=== PATIENT | female | born 1960 | race Caucasian/White ===

== ENCOUNTER 2019-01-04 13:10 | Emergency (ER) | payer BC, MEDICARE ==
--- NOTE | 2019-01-04 14:08 | CT ---
EXAMINATION TYPE: CT brain jake gallegos DATE OF EXAM: 01/04/2019 COMPARISON: None HISTORY: 58-year-old female Ran into screen door, OSCAR and neck pain CT DLP: 1353 mGycm Automated exposure control for dose reduction was used. Technique: Examination of the head was done in axial plane without intravenous contrast. Coronal and sagittal reconstructions performed. CT of the cervical spine was obtained in axial plane without intravenous injection of contrast mater ial. Coronal and sagittal reformatted images were obtained from the axial views for evaluation of f ractures, spinal alignment and canal. FINDINGS: Head: There is no evidence of acute intracranial hemorrhage, acute ischemic changes, mass, mass-effect, or extra-axial fluid collection. There is no effacement of cerebral sulci or basal subarachnoid cister ns. There is no hydrocephalus. There is no midline shift. Parra-white matter distinction is preserv ed. Trace mucosal thickening within the right-sided ethmoid air cells. Visualized orbits and globes are i ntact. Mastoid air cells are pneumatized. Cervical spine: No craniocervical junction abnormality, predental space widening, or prevertebral soft tissue swellin g. Reversal of the normal cervical lordosis with prior ACDF from C5 through C7 levels. Trace grade 1 anterolisthesis at T2-T3. No acute fracture of the cervical spine. Scattered mild uncovertebral joint arthropathy. There is some residual posterior osteophytic ridging at the fused C5-C6 level possibly contributing t o moderate underlying spinal canal stenosis. Disc osteophyte complex along the fusion isn't the C4-C5 causes mild spinal canal stenosis. Variable mild neuroforaminal narrowing throughout. Possible underlying 1.6 cm nodule within the left lobe of the thyroid gland. 5 mm subpleural pulmonary nodule posterior right upper lobe. Six-month follow-up recommended to reass ess in survey of the remainder of the lungs. Sagittal and coronal reformatted images confirm above findings. COMBINED IMPRESSION: 1. No acute intracranial abnormality seen. 2. No acute fracture of the cervical spine. 3. Prior C5-C7 ACDF. Degenerative grade 1 anterolisthesis at T2-T3. Residual posterior osteophytic ri dging at the fused C5-C6 level may contribute to moderate narrowing of the spinal canal. Degenerative disc disease causing mild spinal canal narrowing above the fusion at C4-C5. 4. There may be a 1.6 cm nodule within the left lobe of the thyroid gland. Nonemergent follow-up thyr oid ultrasound to further evaluate.
[2019-01-04] MEDS ORDERED: KETOROLAC 30 MG/ML 1 ML VIAL IVP STA (14:26)
[2019-01-04] MEDS ORDERED: METOCLOPRAMIDE 5 MG/ML 2 ML VIAL IVP STA (14:26)
[2019-01-04] MEDS ORDERED: diphenhydrAMINE 50 MG/ML 1 ML VIAL IVP STA ×2 (14:26→15:10)
[2019-01-04] MEDS ORDERED: SODIUM CHLORIDE 0.9% 500 ML 500 ML IV ONE (14:27)
[2019-01-04 15:47] LABS: Glucose,Whole Blood 124 mg/dL (75-99)
--- NOTE | 2019-01-04 15:50 | ED ---
Head Injury HPI - General Chief complaint: Head Injury Stated complaint: Head Injury Time Seen by Provider: 01/04/19 13:38 Source: patient Mode of arrival: ambulatory Limitations: no limitations - History of Present Illness Initial comments: 58yo female presenting to the emergency department for evaluation of headache after head injury. Patient states she was running around 7:30 PM last night when she went face first into a glass storm door. She states she has not used a these as they do not have been in [place]. Patient states she was disorien rasta after she initially struck the door she denies falling or injury to the back. Patient states that she had some neck pain about hour after the injury as well as facial pain. She states she has broken her nose 2 times. She denies epistaxis. Patient denies loss of conscious. Patient denies any nausea or vomiting. Patient denies any dizziness speech changes weakness of the upper or lower extremities or sensation deficits. Patient states she has failed to walk without difficulty however her facial pain soon developed into a headache this morning she was concerned she had a concussion with headache persisted into this afternoon she presents emergency department for further evaluation upon arrival patient appears well signs of acute distress. No obvious focal deficits. She is very pleasant - Related Data Home Medications Medication Instructions Recorded Confirmed Acetaminophen Tab [Tylenol Tab] 1,000 mg PO Q6HR 01/04/19 01/04/19 Cholecalciferol (Vitamin D3) 2,000 unit PO DAILY 01/04/19 01/04/19 [Vitamin D3] INSULIN LISPRO (humaLOG) [humaLOG] See Protocol SQ AC-TID 01/04/19 01/04/19 Insulin Glargine [Lantus] 20 unit SQ HS 01/04/19 01/04/19 Multivitamins, Thera [Multivitamin 1 tab PO DAILY 01/04/19 01/04/19 (formulary)] metFORMIN HCL [Glucophage Xr] 500 mg PO DAILY 01/04/19 01/04/19 Allergies/Adverse reactions: Allergies Allergy/AdvReac Type Severity Reaction Status Date / Time shellfish derived [Shrimp] Allergy Rash/Hives Verified 01/04/19 14:16 Review of Systems ROS Statement: Those systems with pertinent positive or pertinent negative responses have been documented in the HPI. ROS Other: All systems not noted in ROS Statement are negative. Past Medical History Past Medical History: Asthma, Fibromyalgia, Osteoarthritis (OA) Additional Past Medical History / Comment(s): DM type I, lupus, ankylosing spondylitis, RA, interstitial cystitis History of Any Multi-Drug Resistant Organisms: MRSA Date of last positivie culture/infection: RT breast 2016 Past Surgical History: Back Surgery, Section Additional Past Surgical History / Comment(s): hip decompression, bilateral shoulder sx, partial hysterectomy, D&C, carpal tunnel, gastric sleeve, breast augmentation Past Psychological History: No Psychological Hx Reported Smoking Status: Never smoker Past Alcohol Use History: None Reported Past Drug Use History: None Reported General Exam - General Exam Comments Initial Comments: General: The patient is awake and alert, in no distress Eye: Pupils are equal, round and reactive to light, extra-ocular movements are intact. No nystagmus. There is normal conjunctiva bilaterally. No signs of icterus. Ears, nose, mouth and throat: There are moist mucous membranes and no oral lesions. No raccoon or Wheat sign no deviation of the nasal septum. Neck: The neck is supple, there is no tenderness or JVD. Cardiovascular: There is a regular rate and rhythm. No murmur, rub or gallop is appreciated. Respiratory: Lungs are clear to auscultation, respirations are non-labored, breath sounds are equal. No wheezes, stridor, rales, or rhonchi. Musculoskeletal: Normal ROM, no tenderness. Strength 5/5 of the UE and LE b/l. Sensation intact of the UE and LE b/l. Pulses equal bilaterally 2+. Neurological: A&O x 3. CN II-XII intact, There are no obvious motor or sensory deficits. Gait, heel to perry finger nose within cor name.. Speech is normal. Skin: Skin is warm and dry and no rashes or lesions are noted. Psychiatric: Cooperative, appropriate mood & affect, normal judgment. Limitations: no limitations Course Vital Signs 01/04/19 01/04/19 13:22 16:04 Temperature 97.5 F L 97.8 F Pulse Rate 70 73 Respiratory 18 16 Rate Blood Pressure 100/53 112/67 O2 Sat by Pulse 98 99 Oximetry Medical Decision Making - Medical Decision Making 58yo female presenting to emergency department for evaluation of facial/head injury with headache. CT of the brain and C-spine negative for acute process. He is able to fully range the cervical spine without difficulty. There is some noticed stenosis of the cervical spine. Patient has no radicular symptoms. Strength the upper extremities with sensation intact. Patient has no acute intracranial process however clinically possible concussion. Concussion protocol as discussed. No focal neurological deficits on physical examination. Patient was given Toradol Reglan and Benadryl. Patient glucose checked which was within normal limits. Incidental finding of thyroid nodule patient states she is aware. Patient was discharged appearing well agreeable with concussion protocols and PCP follow-up within 1-2 days. - Lab Data Lab Results 01/04/19 Range/Units 15:45 POC Glucose (mg/dL) 124 H (75-99) mg/dL POC Glu Patient Account Liaison ID Mookie Marie Disposition Clinical Impression: Head ache, Head injury, Concussion, Thyroid nodule Disposition: HOME SELF-CARE Condition: Good Instructions (If sedation given, give patient instructions): Concussion (ED) Additional Instructions: Please use medication as discussed. Please follow-up with family doctor in the next 2 days, for concussion as well as thyroid nodule. Please return to emergency room if the symptoms increase or worsen or for any other concerns. Is patient prescribed a controlled substance at d/c from ED?: No Referrals: Dick Mariano DO [Primary Care Provider] - 1-2 days Time of Disposition: 15:50
[2019-01-04 16:05] VITALS: BP 112/67; PULSE 73; RESP 16; TEMP 97.8
== END 2019-01-04 16:04 | disposition home or self-care (01) ==
LOC: EC 13:10
DX: S06.0X0A Concussion without loss of consciousness, initial encounter (principal); E04.1 Nontoxic single thyroid nodule; E10.9 Type 1 diabetes mellitus without complications; Z79.4 Long term (current) use of insulin; Z91.018 Allergy to other foods
CPT/HCPCS: 36415; 72125; 70450; 99284; 96374; 96375 ×2; 96361; J1200; J2765; J1885

== ENCOUNTER → 2019-03-10 | Outpatient (CLI) | payer BC, MEDICARE ==
--- NOTE | 2019-03-10 14:02 | US ---
EXAMINATION TYPE: US thyroid st tissue head/neck DATE OF EXAM: 03/10/2019 COMPARISON: NONE CLINICAL HISTORY: E04.1 Nontoxic single thyroid nodule. Priors [place]. GLAND SIZE: Right Lobe: 5.3 x 1.6 x 1.5 cm Overall Parenchyma: homogenous Left Lobe: 6.2 x 1.8 x 2.6 cm Overall Parenchyma: heterogeneous Isthmus Thickness: 0.5 cm NODULES RIGHT: # of nodules measured on right: 1 1. 1.6 X 0.8 x 1.1 cm hypoechoic mixed nodule at the upper pole with well-defined margins; . This nodule is wider than tall and shows no intranodular vascularity. Prior size: no prior here LEFT: # of nodules measured on left: 3 1. 2.4 X 1.1 x 1.6 cm isoechoic mixed nodule at the mid pole with well-defined margins; . This nod ule is wider than tall and shows peripheral vascularity. Prior size: no prior here 2. 1.2 X 0.8 x 1.2 cm isoechoic mixed nodule at the lower pole with well-defined margins; . This no dule is wider than tall and shows intranodular vascularity. Prior size: no prior here 3. 0.9 X 0.7 x 0.9 cm isoechoic mixed nodule at the upper pole with well-defined margins; . This no dule is wider than tall and shows no intranodular vascularity. Prior size: no prior here ISTHMUS: # of nodules measured in the isthmus: 0 Bilateral neck scanned, no evidence of lymphadenopathy. Conglomeration of nodules that all run together within the left, difficult to distinguish individual versus consolidated nodules. IMPRESSION: Bilateral thyroid nodules are seen. The largest appears as a conglomeration of multiple nodules on th e left measuring 2.4 cm. Comparison with the outside images would be recommended to ensure stability. Otherwise fine-needle aspiration could be considered for the left conglomeration of nodules given th e overall size versus short-term follow-up in 6-12 months.
== END | disposition home or self-care (01) ==
LOC: RADUSWWP 13:21
PROVIDERS: ATTEND Family Medicine
DX: E04.2 Nontoxic multinodular goiter (principal)
CPT/HCPCS: 76536

== ENCOUNTER 2019-04-08 09:12 | Day surgery (SDC) | payer BC, MEDICARE ==
[2019-04-08 09:44] VITALS: PULSE 87; RESP 16; TEMP 98.1
[2019-04-08 10:48] LABS: Glucose,Whole Blood 45 mg/dL (75-99)
[2019-04-08 11:04] LABS: Glucose,Whole Blood 101 mg/dL (75-99)
[2019-04-08 11:47] LABS: Glucose,Whole Blood 148 mg/dL (75-99)
--- NOTE | 2019-04-08 12:01 | US ---
EXAMINATION TYPE: US FNA thyroid each add lesion, US FNA thyroid first lesion DATE OF EXAM: 04/08/2019 COMPARISON: Ultrasound 03/10/2019 HISTORY: Thyroid nodule. Hand hygiene obtained with soap and water. Maximal barrier technique was utilized. After informed co nsent, skin overlying the lesion was localized with ultrasound and the overlying skin prepped and oseas ped. Ultrasound was utilized using sterile technique. Lidocaine was used for local anesthesia. 3 pas ses with a 25-gauge needle were made into the right-sided thyroid nodule and aspirated specimen was s ubmitted to cytology. 5 passes made into the left lobe thyroid nodule using similar technique and asp irated specimen submitted to cytology. Following the procedure hemostasis achieved. No immediate com plication. The patient discharged in stable condition. IMPRESSION: STATUS POST ULTRASOUND GUIDED FINE NEEDLE ASPIRATION OF BILATERAL THYROID NODULES, PATHOL OGY IS PENDING. THIS PROCEDURE WAS PERFORMED BY THE UNDERSIGNED.
[2019-04-08 12:11] VITALS: BP 111/76
== END 2019-04-08 12:05 | disposition home or self-care (01) ==
LOC: RADPROMAIN 09:12
PROVIDERS: ATTEND Internal Medicine Endocrinology, Diabetes & Metabolism
DX: E04.2 Nontoxic multinodular goiter (principal)
CPT/HCPCS: 10005; 10006; 88173; 88305

== ENCOUNTER → 2019-10-13 | Outpatient (CLI) | payer BC, MEDICARE ==
--- NOTE | 2019-10-25 14:00 | MM ---
Reason for exam: screening (asymptomatic). Last mammogram was performed 11 months ago. History: Patient is postmenopausal. Family history of breast cancer in mother at age 66 and breast cancer in maternal aunt at age 64. Retro-pectoral implants in both breasts, 2002. Physical Findings: A clinical breast exam by your physician is recommended on an annual basis and results should be correlated with mammographic findings. MG 3D Screen Mammo Imp/Cad Bilateral CC and MLO view(s) were taken. Prior study comparison: November 24, 2018, mammogram, performed at [place]. November 26, 2016, mammogram, performed at [place]. The breast tissue is heterogeneously dense. This may lower the sensitivity of mammography. Finding: There are typically benign vascular, dystrophic, round, linear calcifications in both breasts. There is no discrete abnormality. Bilateral subpectoral implants demonstrated. ASSESSMENT: Benign, BI-RAD 2 RECOMMENDATION: Routine screening mammogram of both breasts in 1 year.
== END | disposition home or self-care (01) ==
LOC: RADMAMWWP 14:39
PROVIDERS: ATTEND Family Medicine
DX: Z12.39 Encounter for other screening for malignant neoplasm of breast (principal)
CPT/HCPCS: 77063; 77067

== ENCOUNTER → 2020-04-26 | Outpatient (CLI) | payer BC, MEDICARE ==
[2020-04-27 01:37] LABS: Hemoglobin A1C 8.4 % (4.0-6.0)
== END | disposition home or self-care (01) ==
LOC: LABWHC1 14:22
PROVIDERS: ATTEND Internal Medicine Endocrinology, Diabetes & Metabolism
DX: Z01.812 Encounter for preprocedural laboratory examination (principal); E10.65 Type 1 diabetes mellitus with hyperglycemia; E04.2 Nontoxic multinodular goiter
CPT/HCPCS: 84443; 83036; 36415; U0003

== ENCOUNTER → 2020-06-12 | Outpatient (CLI) | payer BC, MEDICARE ==
[2020-06-12 22:18] LABS: Hemoglobin A1C 8.3 % (4.0-6.0)
== END | disposition home or self-care (01) ==
LOC: LABWHC1 09:58
PROVIDERS: ATTEND Internal Medicine Endocrinology, Diabetes & Metabolism
DX: E10.65 Type 1 diabetes mellitus with hyperglycemia (principal); E04.2 Nontoxic multinodular goiter
CPT/HCPCS: 36415; 83036; 84439; 84443

== ENCOUNTER → 2020-07-09 | Outpatient (CLI) | payer BC, MEDICARE ==
[2020-07-09 23:56] LABS: C-Peptide <0.05 ng/mL (0.81-3.85)
[2020-07-10 00:48] LABS: Glucose 230 mg/dL (70-110)
== END | disposition home or self-care (01) ==
LOC: LABWHC1 07:57
PROVIDERS: ATTEND Internal Medicine Endocrinology, Diabetes & Metabolism
DX: E10.65 Type 1 diabetes mellitus with hyperglycemia (principal)
CPT/HCPCS: 36415; 82947; 84681

== ENCOUNTER → 2020-12-13 | Outpatient (CLI) | payer BC, MEDICARE ==
--- NOTE | 2020-12-13 15:06 | XR ---
EXAMINATION TYPE: XR lumbar spine 2 or 3V DATE OF EXAM: 12/13/2020 CLINICAL HISTORY: Low back pain. TECHNIQUE: Frontal and lateral images of the lumbar spine are obtained. COMPARISON: None FINDINGS: There are 5 lumbar type vertebral bodies identified. The lumbar spine shows satisfactory alignment without evidence of acute fracture or dislocation. Vertebral body heights are within normal limits. Mild disc space narrowing L1-L2 and L2-L3 levels. Surgical sutures and clips at epigastric r egion are partially imaged. IMPRESSION: As above.
[2020-12-13 15:48] LABS: Basophils # (A) 0.1 k/uL (0-0.2); Basophils % (A) 1 %; Eosinophils # (A) 0.1 k/uL (0-0.7); Eosinophils % (A) 2 %; HCT 39.9 % (34.0-46.0); HGB 13.4 gm/dL (11.4-16.0); Lymphocytes # (A) 2.1 k/uL (1.0-4.8); Lymphocytes % (A) 33 %; MCH 30.2 pg (25.0-35.0); MCHC 33.7 g/dL (31.0-37.0); MCV 89.7 fL (80.0-100.0); Mean Platelet Volume 7.7; Monocytes # (A) 0.3 k/uL (0-1.0); Monocytes % (A) 5 %; Neutrophils # (A) 3.7 k/uL (1.3-7.7); Neutrophils % (A) 58 %; Platelet Count 201 k/uL (150-450); RBC 4.45 m/uL (3.80-5.40); RDW 13.7 % (11.5-15.5); WBC 6.3 k/uL (3.8-10.6)
[2020-12-13 15:57] LABS: ALT 14 U/L (4-34); AST 23 U/L (14-36); African American GFR (CKD) >90 (>60 ml/min/1.73 sqM); Albumin 3.6 g/dL (3.5-5.0); Alkaline Phosphatase 82 U/L (38-126); Anion Gap 3 mmol/L; Bilirubin, Delta 0.1 mg/dL (0.0-0.2); Bilirubin,Unconjugated 0.3 mg/dL (0.0-1.1); Blood Urea Nitrogen 17 mg/dL (7-17); Calcium 8.9 mg/dL (8.4-10.2); Carbon Dioxide 28 mmol/L (22-30); Chloride 106 mmol/L (98-107); Non-African American GFR(CKD) >90 (>60 ml/min/1.73 sqM); Potassium 4.3 mmol/L (3.5-5.1); Sodium 137 mmol/L (137-145); Total Bilirubin 0.4 mg/dL (0.2-1.3); Total Protein 6.4 g/dL (6.3-8.2)
--- NOTE | 2020-12-13 16:01 | XR ---
EXAMINATION TYPE: XR Hip Bilateral and AP pelvis DATE OF EXAM: 12/13/2020 COMPARISON: NONE HISTORY: Pelvic and bilateral hip pain. TECHNIQUE: A single AP view of the pelvis is obtained. Two views of the bilateral hips are obtained. FINDINGS: There is no acute fracture/dislocation evident in the pelvis. The sacroiliac joints appea r symmetric and within normal limits. Pubic symphysis is intact. Radiodense device projecting over th e left iliac crest is presumed external to the patient but a colonic foreign body is not excluded. Co rrelate clinically. Two views of bilateral hips show no acute fracture or dislocation. Moderate axial joint space loss le ft hip. Severe axial joint space loss right hip. Some cortical irregularity and subcortical lucency s uperior femoral head on the right hip frog leg view could reflect product of avascular necrosis. The overlying soft tissue is unremarkable bilaterally. IMPRESSION: As above.
[2020-12-13 16:14] LABS: C Reactive Protein <0.5 mg/dL (<1.0)
[2020-12-13 16:32] LABS: Erythrocyte Sedimentation Rate 10 mm/hr (0-20)
[2020-12-14 10:19] LABS: Rheumatoid Factor, Qnt <10 IU/mL (0-15)
[2020-12-14 23:28] LABS: Cyclic Citrull Pep IgG Unit <0.5 U/mL; Cyclic Citrullinated Pep IgG NEGATIVE (NEGATIVE)
== END | disposition home or self-care (01) ==
LOC: RADXRMAIN 14:30
PROVIDERS: ATTEND Internal Medicine Rheumatology
DX: E10.9 Type 1 diabetes mellitus without complications (principal); M54.9 Dorsalgia, unspecified; N76.89 Other specified inflammation of vagina and vulva; Z15.89 Genetic susceptibility to other disease
CPT/HCPCS: 72100; 73521; 80051; 82040; 82248; 82306; 82310; 82565; 84075; 84155; 84450; 84460; 84520; 84550; 85025; 85652; 86038; 86140; 86200; 86431

== ENCOUNTER → 2021-01-01 | Outpatient (CLI) | payer BC, MEDICARE ==
--- NOTE | 2021-01-01 14:21 | MM ---
Reason for exam: screening (asymptomatic). Last mammogram was performed 1 year and 3 months ago. History: Patient is postmenopausal. Family history of breast cancer in mother at age 66 and breast cancer in maternal aunt at age 64. Implant Removal of both breasts, May 03, 2020. Retro-pectoral implants in both breasts, 2001. Taking estrogen for 5 years. Physical Findings: A clinical breast exam by your physician is recommended on an annual basis and results should be correlated with mammographic findings. MG 3D Screening Mammo W/Cad Bilateral CC, MLO, and XCCL view(s) were taken. Prior study comparison: October 13, 2019, bilateral MG 3d screen mammo imp/cad. November 24, 2018, mammogram, performed at [place]. The breast tissue is heterogeneously dense. This may lower the sensitivity of mammography. There are benign appearing round vascular calcifications bilaterally. There is no discrete abnormality. Interval removal of bilateral implants. ASSESSMENT: Benign, BI-RAD 2 RECOMMENDATION: Routine screening mammogram of both breasts in 1 year.
== END | disposition home or self-care (01) ==
LOC: RADMAMWWP 13:36
PROVIDERS: ATTEND Family Medicine
DX: Z12.39 Encounter for other screening for malignant neoplasm of breast (principal)
CPT/HCPCS: 77063; 77067

== ENCOUNTER → 2021-05-25 | Outpatient (CLI) | payer BC, MEDICARE ==
[2021-05-25 11:57] LABS: ALT 17 U/L (8-44); AST 18 U/L (13-35); African American GFR (CKD) 108.2 (60.0-200.0); Albumin 4.1 g/dL (3.8-4.9); Albumin/Globulin Ratio 1.73 (1.60-3.17); Alkaline Phosphatase 97 U/L (41-126); BUN/Creat Ratio 23.27 Ratio (12.00-20.00); Blood Urea Nitrogen 16.5 mg/dL (9.0-27.0); Calcium 8.8 mg/dL (8.7-10.3); Carbon Dioxide 25.8 mmol/L (20.0-27.5); Chloride 102 mmol/L (96-109); Chol/HDL Ratio 2.57 Ratio; Globulin 2.3 g/dL (1.6-3.3); Glucose 120 mg/dL (70-110); LDL Cholesterol,Calculated 106.6 mg/dL (0.0-131.0); Non-African American GFR(CKD) 93.4 (60.0-200.0); Sodium 140 mmol/L (135-145); Total Protein 6.4 g/dL (6.2-8.2); VLDL Calculation 13.74 mg/dL (5.00-40.00)
[2021-05-25 18:48] LABS: Microalbumin Creatinine Ratio <30 mg/g Creat (0-30)
== END | disposition home or self-care (01) ==
LOC: LABWHC1 08:21
PROVIDERS: ATTEND Internal Medicine Endocrinology, Diabetes & Metabolism
DX: E10.65 Type 1 diabetes mellitus with hyperglycemia (principal)
CPT/HCPCS: 36415; 80053; 80061; 82043; 82570; 83036; 84443

== ENCOUNTER → 2021-07-23 | Outpatient (CLI) | payer BC, MEDICARE ==
--- NOTE | 2021-07-23 18:16 | US ---
EXAMINATION TYPE: US thyroid st tissue head/neck DATE OF EXAM: 07/23/2021 COMPARISON: 03/10/2019 CLINICAL HISTORY: 61-year-old female E04.2 MULTINODULAR GOITER. Follow up for nodules. Not on thyroi d meds. TECHNIQUE: Multiple sonographic images of the thyroid gland are obtained. FINDINGS: GLAND SIZE: Right Lobe: 5.4 x 2.2 x 1.4 cm Overall Parenchyma: homogenous Left Lobe: 5.6 x 2.5 1.8 cm Overall Parenchyma: homogeneous Isthmus Thickness: 0.4 cm NODULES RIGHT: # of nodules measured on right: 2 1. 0.8 X 0.7 x 0.5 cm, mid lateral, mixed cystic and solid, hypoechoic nodule, which is wider than tall, with smooth margins, without echogenic foci. Prior size: 1.6 x 0.8 x 0.8 cm 2. 0.3 X 0.3 x 0.3 cm, lower mid, mixed cystic and solid, hypoechoic nodule, which is wider than ta ll, with smooth margins, without echogenic foci. Prior size: no prior LEFT: # of nodules measured on left: 3 1. 2.5 X 1.7 x 1.3 cm, mid mid, primarily solid, heterogeneous nodule, which is wider than tall, wi th smooth margins, without echogenic foci. Prior size: 2.4 x 1.1 x 1.6 cm 2. 1.0 X 0.9 x 0.8 cm, lower mid, solid or almost completely solid, isoechoic nodule, which is wid er than tall, with smooth margins, without echogenic foci. Prior size: 1.2 x 0.8 x 1.2 cm 3. 0.8 X 1.0 x 0.7 cm, upper mid, primarily solid, isoechoic nodule, which is wider than tall, with smooth margins, without echogenic foci. Prior size: 0.9 x 0.7 x 0.9 cm ISTHMUS: # of nodules measured in the isthmus: 0 Bilateral neck scanned, no evidence of lymphadenopathy. IMPRESSION: 1. A tiny 3 mm nodule on the right is new, of questionable clinical significance. The previous domina nt nodule on the right is smaller at 8 mm versus 1.6 cm, previously. 2. Dominant nodules on the left measuring up to 2.5 cm are relatively unchanged. Findings suggest mul tinodular goiter.
== END | disposition home or self-care (01) ==
LOC: RADUSWWP 09:27
PROVIDERS: ATTEND Internal Medicine Endocrinology, Diabetes & Metabolism
DX: E04.2 Nontoxic multinodular goiter (principal)
CPT/HCPCS: 76536

== ENCOUNTER → 2021-09-13 | Outpatient (CLI) | payer BC, MEDICARE ==
--- NOTE | 2021-09-13 13:58 | US ---
EXAMINATION TYPE: US liver DATE OF EXAM: 09/13/2021 COMPARISON: Outside MRI lumbar spine August 12, 2021. Outside CT July 04, 2021 CLINICAL HISTORY: R93.89. Patient states orthopedic doctor saw possible mass on the liver or the righ t kidney versus other on outside MRI. Limited history from patient. MRI scan abnormal per order. Abno rmal outside MRI. EXAM MEASUREMENTS: Liver Length: 15.8 cm Gallbladder Wall: 0.16 cm CBD: 0.43 cm Right Kidney: 10.9 x 6.1 x 4.5 cm Exam is limited due to gas. Pancreas: Limited visibility. Liver: Limited, appears slightly coarse in echotexture. Gallbladder: Appears anechoic. Evidence for sonographic Mcclain's sign: No. CBD: Portions seen appear wnl. Right Kidney: Hypoechoic area seen lower pole: 2.4 x 2.4 x 1.1 cm - ?Pyramid Visualized pancreas within normal limits. IVC is seen near the hepatic dome. Visualized liver shows n o worrisome mass or ductal dilatation. No intraluminal gallstones. No right-sided hydronephrosis. [place] ards end of study technologist jenkins oval isoechoic area lower pole right kidney favoring normal lamont ex. No suspicious lesion on recent CT or MRI at this level. IMPRESSION: As above. Area of concern gallbladder on MRI is clearly artifact as noted on MRI report a ddendum.
== END | disposition home or self-care (01) ==
LOC: RADUSWWP 08:10
PROVIDERS: ATTEND Family Medicine
DX: R93.89 Abnormal findings on diagnostic imaging of other specified body structures (principal)
CPT/HCPCS: 76705

== ENCOUNTER 2021-10-07 21:20 | Emergency (ER) | payer BC, MEDICARE ==
[2021-10-07 21:31] VITALS: RESP 20
[2021-10-07] MEDS ORDERED: HYDROmorphone 1 MG/ML 1 ML SYRINGE IVP STA (22:30)
[2021-10-07] MEDS ORDERED: CEPHALEXIN 500 MG CAP PO STA (22:30)
[2021-10-07] MEDS ORDERED: AMOXIC-POT CLAV 875-125MG 1 EACH TAB PO STA (22:35)
[2021-10-07] MEDS ORDERED: AMOXIC-POT CLAV 875MG STARTER PACK 2 TAB BTL PO STA (22:39)
[2021-10-07] MEDS ORDERED: ACET/COD 300 MG/30 MG STARTER PACK 6 TAB BTL PO STA (22:39)
--- NOTE | 2021-10-07 22:40 | ED ---
Animal Bite HPI - General Chief Complaint: Animal Bite Stated Complaint: Dog Bite Time Seen by Provider: 10/07/21 21:40 Source: patient, family Mode of arrival: EMS Limitations: no limitations - Related Data Home Medications Medication Instructions Recorded Confirmed Acetaminophen Tab [Tylenol Tab] 1,000 mg PO Q6HR 01/04/19 04/08/19 Cholecalciferol (Vitamin D3) 2,000 unit PO DAILY 01/04/19 03/29/19 [Vitamin D3] INSULIN LISPRO (humaLOG) [humaLOG] See Protocol SQ AC-TID 01/04/19 04/08/19 Insulin Glargine [Lantus] 20 unit SQ HS 01/04/19 03/29/19 Multivitamins, Thera [Multivitamin 1 tab PO DAILY 01/04/19 03/29/19 (formulary)] metFORMIN HCL [Glucophage Xr] 500 mg PO DAILY 01/04/19 04/08/19 Previous Rx's Medication Instructions Recorded Amoxic-Pot Clav 875-125Mg 1 tab PO Q12HR #14 tablet 10/07/21 [Augmentin 875-125] Allergies Allergy/AdvReac Type Severity Reaction Status Date / Time shellfish derived [Shrimp] Allergy Rash/Hives Verified 10/07/21 21:30 Review of Systems ROS Statement: Those systems with pertinent positive or pertinent negative responses have been documented in the HPI. ROS Other: All systems not noted in ROS Statement are negative. Past Medical History Past Medical History: Asthma, Fibromyalgia, Osteoarthritis (OA), Thyroid Disorder Additional Past Medical History / Comment(s): DM type I, lupus, ankylosing spondylitis, RA, interstitial cystitis History of Any Multi-Drug Resistant Organisms: MRSA Date of last positivie culture/infection: 2015 MDRO Source:: skin on breast Past Surgical History: Back Surgery, Section Additional Past Surgical History / Comment(s): hip decompression, bilateral shoulder sx, partial hysterectomy, D&C, carpal tunnel, gastric sleeve, breast augmentation Past Anesthesia/Blood Transfusion Reactions: No Reported Reaction Past Psychological History: No Psychological Hx Reported Smoking Status: Never smoker Past Alcohol Use History: None Reported Past Drug Use History: None Reported - Past Family History Mother Family Medical History: Cancer, Thyroid Disorder General Exam Limitations: no limitations Course Vital Signs 10/07/21 21:26 Temperature 98.3 F Pulse Rate 90 Respiratory 20 Rate Blood Pressure 143/66 O2 Sat by Pulse 97 Oximetry Disposition Clinical Impression: Dog bite, Laceration Disposition: HOME SELF-CARE Condition: Good Instructions (If sedation given, give patient instructions): Animal Bite (ED), Care For Your Stitches (ED) Prescriptions: Amoxic-Pot Clav 875-125Mg [Augmentin 875-125] 1 tab PO Q12HR #14 tablet Is patient prescribed a controlled substance at d/c from ED?: No Referrals: Dick Mariano DO [Primary Care Provider] - 1-2 days
--- NOTE | 2021-10-07 23:00 | XR ---
EXAMINATION TYPE: XR hand limited RT DATE OF EXAM: 10/07/2021 COMPARISON: NONE HISTORY: Dog bite. Pain TECHNIQUE: 2 views FINDINGS: I see no fracture nor dislocation. There is some narrowing and spurring at the IP joints. T here are no erosions. No subluxation. IMPRESSION: osteoarthritis. No fracture. There is question of minimal soft tissue air around the thir d and fourth metacarpals.
[2021-10-07 23:48] VITALS: BP 144/84; PULSE 80; TEMP 97.9
== END 2021-10-07 23:47 | disposition home or self-care (01) ==
LOC: EC 21:20
DX: S61.411A Laceration without foreign body of right hand, initial encounter (principal); J45.909 Unspecified asthma, uncomplicated; M19.90 Unspecified osteoarthritis, unspecified site; E10.9 Type 1 diabetes mellitus without complications; Z79.84 Long term (current) use of oral hypoglycemic drugs; Z79.4 Long term (current) use of insulin; W54.0XXA Bitten by dog, initial encounter; Z91.013 Allergy to seafood
CPT/HCPCS: 73120; 99283; 96374; J1170

== ENCOUNTER → 2022-02-18 | Outpatient (CLI) | payer BC, MEDICARE ==
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
--- NOTE | 2022-02-19 11:48 | MM ---
Reason for Exam: Screening (asymptomatic). Last mammogram was performed 1 year(s) and 2 month(s) ago. Patient History: Menarche at age 14. First Full-Term at age 22. Hysterectomy at age 40. Postmenopausal. Currently using Estrogen, for 5 years. 05/03/2020, Bilateral Implant Removal. 2001, Bilateral Implants. Maternal aunt had breast cancer, age 64. Mother had breast cancer, age 66. Risk Values: Berna 5 year model risk: 2.7%. NCI Lifetime model risk: 13.9%. Prior Study Comparison: 11/24/2018 Screening Mammogram, [place]. 10/13/2019 Bilateral Screening Mammogram, [facility]. 01/01/2021 Bilateral Screening Mammogram, [facility]. Tissue Density: The breast tissue is heterogeneously dense. This may lower the sensitivity of mammography. Findings: Analyzed By CAD. There are benign-appearing round and vascular calcifications bilaterally redemonstrated. There are stable small well-circumscribed round masses towards the left axilla favor benign lymph nodes again seen. There is no suspicious new group of microcalcifications or new suspicious mass in either breast. Overall Assessment: Benign, BI-RAD 2 Management: Screening Mammogram of both breasts in 1 year. A clinical breast exam by your physician is recommended on an annual basis and results should be correlated with mammographic findings. Electronically signed and approved by: Tyler Mohan M.D.
== END | disposition home or self-care (01) ==
LOC: RADMAMWWP 07:13
PROVIDERS: ATTEND Obstetrics & Gynecology
DX: Z12.31 Encounter for screening mammogram for malignant neoplasm of breast (principal); Z13.820 Encounter for screening for osteoporosis; E10.9 Type 1 diabetes mellitus without complications; Z78.0 Asymptomatic menopausal state; Z79.52 Long term (current) use of systemic steroids; Z80.3 Family history of malignant neoplasm of breast
CPT/HCPCS: 77063; 77067; 77080

== ENCOUNTER → 2022-03-12 | Outpatient (CLI) | payer BC, MEDICARE | END | disposition home or self-care (01) | LOC: LABPAT 16:17 | PROVIDERS: ATTEND Surgery Plastic and Reconstructive Surgery | DX: Z53.9 Procedure and treatment not carried out, unspecified reason (principal) ==

== ENCOUNTER → 2022-04-09 | Outpatient (CLI) | payer BC, MEDICARE ==
[2022-04-09 17:20] VITALS: BP 120/85; PULSE 72; RESP 13; TEMP 97.6; BMI 30.4
--- NOTE | 2022-04-09 17:46 | P.BASOAP ---
Subjective Progress Note Date: 04/09/22 Protein 40 to 90 grams. Not consistent with protein. She is diabetic for 37 years. She is type I diabetic. She is on an insulin pump. She has lost weight. Challenge of 80 grams protein and 80 oz fluid. 3 GGG. She will lose 8 to 10 pounds. Objective - Vital Signs Vital signs: Vital Signs Temp 97.6 F 04/09/22 17:15 Pulse 72 04/09/22 17:15 Resp 13 04/09/22 17:15 BP 120/85 04/09/22 17:15 Pulse Ox FiO2 Intake & Output 04/08/22 04/09/22 04/09/22 18:59 06:59 18:59 Weight 92.306 kg Assessment/Plan Plan: Date: 04/09/22 Initial Weight: Initial BMI: Current Weight: 92.306 kg Current BMI: 30.4 Type of Surgery: Total Volume in Band: Previous Volume: Volume Removed: Volume Added: Band Size:
== END ==
LOC: BARWHC3 15:50
PROVIDERS: ATTEND Surgery Plastic and Reconstructive Surgery
DX: E66.01 Morbid (severe) obesity due to excess calories (principal); Z68.30 Body mass index [BMI] 30.0-30.9, adult; Z91.013 Allergy to seafood
CPT/HCPCS: 99211

== ENCOUNTER → 2022-05-28 | Outpatient (CLI) | payer BC, MEDICARE ==
[2022-05-28 17:09] VITALS: BP 135/79; PULSE 97; TEMP 97.4; BMI 31.7
--- NOTE | 2022-05-28 17:28 | P.BASOAP ---
Subjective Progress Note Date: 05/28/22 She reports weight gain with new insulin. She is on 850 kcal diet. She lost 40 pounds on limited weight diet restriction. She has weight gain. Recommend change insulin. Recommend diet changes. Objective - Vital Signs Vital signs: Vital Signs Temp 97.4 F L 05/28/22 17:00 Pulse 97 05/28/22 17:00 Resp BP 135/79 05/28/22 17:00 Pulse Ox FiO2 Intake & Output 05/27/22 05/28/22 05/28/22 18:59 06:59 18:59 Weight 96.162 kg Assessment/Plan Plan: Date: 05/28/22 Initial Weight: Initial BMI: Current Weight: 96.162 kg Current BMI: 31.7 Type of Surgery: Total Volume in Band: Previous Volume: Volume Removed: Volume Added: Band Size:
== END ==
LOC: BARWHC3 16:06
PROVIDERS: ATTEND Surgery Plastic and Reconstructive Surgery
DX: E66.01 Morbid (severe) obesity due to excess calories (principal); Z68.31 Body mass index [BMI] 31.0-31.9, adult; Z91.013 Allergy to seafood
CPT/HCPCS: 99211

== ENCOUNTER 2022-07-21 17:20 | Emergency (ER) | payer BC, MEDICARE ==
[2022-07-21 17:27] VITALS: TEMP 98.2
[2022-07-21] MEDS ORDERED: HYDROmorphone 1 MG/ML 1 ML SYRINGE IVP STA (17:48)
--- NOTE | 2022-07-21 17:51 | ED ---
General Adult HPI - General Chief complaint: Neck Pain/Injury Stated complaint: Neck pain Time Seen by Provider: 07/21/22 17:37 Source: patient, family, RN notes reviewed Mode of arrival: ambulatory Limitations: no limitations - History of Present Illness Initial comments: Patient is a pleasant 62-year-old female presenting to the emergency department with concern for neck pain. Patient does have history of chronic neck pain with surgery around 10 years ago. Patient was sitting on a stool she fell back. Patient was outside on grass. Patient landed on her upper back. Patient does not believe she directly had trauma to her neck. Patient is unclear whether or not she hit her head but does not believe she did. No loss of consciousness. No visual change. No confusion. No persistent vomiting. No headache. No weakness. No loss of control of bowel or bladder. Patient does have some discomfort of her upper back as well. No dyspnea. No chest pain or abdominal pain. - Related Data Home Medications Medication Instructions Recorded Confirmed Acetaminophen Tab [Tylenol Tab] 1,000 mg PO Q6HR 01/04/19 05/28/22 Cholecalciferol (Vitamin D3) 2,000 unit PO DAILY 01/04/19 05/28/22 [Vitamin D3] INSULIN LISPRO (humaLOG) [humaLOG] See Protocol SQ AC-TID 01/04/19 05/28/22 Multivitamins, Thera [Multivitamin 1 tab PO DAILY 01/04/19 05/28/22 (formulary)] Calcium Carbonate/Vitamin D3 1 each PO DAILY 03/12/22 05/28/22 [Calcium 250-D Tablet] Nystatin 100,000Unit/gm Cream 1 applic TOPICAL BID PRN 03/12/22 05/28/22 [Mycostatin Cream] Previous Rx's Medication Instructions Recorded Cyclobenzaprine [Flexeril] 10 mg PO TID PRN #12 tablet 07/21/22 Allergies Allergy/AdvReac Type Severity Reaction Status Date / Time shellfish derived [Shrimp] Allergy Rash/Hives Verified 07/21/22 17:27 Review of Systems ROS Statement: Those systems with pertinent positive or pertinent negative responses have been documented in the HPI. ROS Other: All systems not noted in ROS Statement are negative. Constitutional: Denies: fever Eyes: Denies: eye pain ENT: Denies: ear pain Respiratory: Denies: cough, dyspnea Cardiovascular: Denies: chest pain Endocrine: Denies: fatigue Gastrointestinal: Denies: abdominal pain Genitourinary: Denies: dysuria Past Medical History Past Medical History: Asthma, Diabetes Mellitus, Fibromyalgia, Osteoarthritis (OA), Thyroid Disorder Additional Past Medical History / Comment(s): DM type I, lupus, ankylosing spondylitis, RA, interstitial cystitis History of Any Multi-Drug Resistant Organisms: MRSA Date of last positivie culture/infection: 2015 MDRO Source:: skin on breast Past Surgical History: Back Surgery, Bariatric Surgery, Breast Surgery, Section, Hysterectomy Additional Past Surgical History / Comment(s): hip decompression, bilateral shoulder sx, partial hysterectomy, D&C, carpal tunnel, gastric sleeve, breast augmentation, breast implants removed, laminectomy, left foot surgery Past Anesthesia/Blood Transfusion Reactions: No Reported Reaction Past Psychological History: No Psychological Hx Reported Smoking Status: Never smoker Past Alcohol Use History: None Reported Past Drug Use History: None Reported - Past Family History Mother Family Medical History: Cancer, Thyroid Disorder General Exam Limitations: no limitations General appearance: alert, in no apparent distress Head exam: Present: atraumatic, normocephalic Eye exam: Present: normal appearance, PERRL, EOMI ENT exam: Present: normal oropharynx Neck exam: Present: normal inspection, tenderness (Diffuse cervical spine. C- collar is in place.) Respiratory exam: Present: normal lung sounds bilaterally Cardiovascular Exam: Present: regular rate, normal rhythm GI/Abdominal exam: Present: soft. Absent: tenderness Extremities exam: Present: normal inspection, full ROM. Absent: tenderness Back exam: Present: tenderness (Mild tenderness midline T1 through T4) Neurological exam: Present: alert, oriented X3, CN II-XII intact. Absent: motor sensory deficit Expanded Neurological exam: Present: protecting the airway Speech: Present: fluid speech Sensory exam: Upper Extremity Light Touch: Normal, Lower Extremity Light Touch: Normal Motor strength exam: RUE: 5, LUE: 5, RLE: 5, LLE: 5 Eye Response: (4) open spontaneously Motor Response: (6) obeys commands Verbal Response: (5) oriented Psychiatric exam: Present: normal affect, normal mood Skin exam: Present: normal color Course Vital Signs 07/21/22 17:24 Temperature 98.2 F Pulse Rate 83 Respiratory 20 Rate Blood Pressure 125/75 O2 Sat by Pulse 99 Oximetry Medical Decision Making - Medical Decision Making Was pt. sent in by a medical professional or institution (SAILAJA Mann, WOODENWARE ASSEMBLER, urgent care, hospital, or half-way...) When possible be specific @ -No Did you speak to anyone other than the patient for history (EMS, parent, family, police, friend...)? What history was obtained from this source @ - is present to help provide history including past surgical time Did you review nursing and triage notes (agree or disagree)? Why? @ -I reviewed and agree with nursing and triage notes Were old charts reviewed (outside hosp., previous admission, EMS record, old EKG, old radiological studies, urgent care reports/EKG's, half-way records)? Report findings @ -No old charts were reviewed Differential Diagnosis (chest pain, altered mental status, abdominal pain women, abdominal pain men, vaginal bleeding, weakness, fever, dyspnea, syncope, headache, dizziness, GI bleed, back pain, seizure, CVA, palpatations, mental health)? @ -not applicable EKG interpreted by me (3pts min.). @ -As above X-rays interpreted by me (1pt min.). @ -Thoracic spine x-ray negative for acute fracture CT interpreted by me (1pt min.). @ -Report reviewed U/S interpreted by me (1pt. min.). @ -None done What testing was considered but not performed or refused? (CT, X-rays, U/S, labs)? Why? @ -None What meds were considered but not given or refused? Why? @ -None Did you discuss the management of the patient with other professionals (professionals i.e. SAILAJA Mann, WOODENWARE ASSEMBLER, lab, RT, psych nurse, mental health social worker, zone supervisor firearms, teacher, railway patrol officer, housing case manager)? Give summary @ -No Was smoking cessation discussed for >3mins.? @ -No Was critical care preformed (if so, how long)? @ -No Were there social determinants of health that impacted care today? How? (Homelessness, low income, unemployed, alcoholism, drug addiction, transportation, low edu. Level, literacy, decrease access to med. care, halfway, rehab)? @ -No Was there de-escalation of care discussed even if they declined (Discuss DNR or withdrawal of care, Hospice)? DNR status @ -No What co-morbidities impacted this encounter? (DM, HTN, Smoking, COPD, CAD, Cancer, CVA, ARF, Chemo, Hep., AIDS, mental health diagnosis, sleep apnea, morbid obesity)? @ -History of chronic neck problems including previous surgery Was patient admitted / discharged? Hospital course, mention meds given and route, prescriptions, significant lab abnormalities, going to OR and other pertinent info. @ -Patient reevaluated and feeling much better with pain medication. Patient and family updated on results and need for follow-up Undiagnosed new problem with uncertain prognosis? @ -No Drug Therapy requiring intensive monitoring for toxicity (Heparin, Nitro, Insulin, Cardizem)? @ -No Were any procedures done? @ -No Diagnosis/symptom? @ -Cervical strain, fall Acute, or Chronic, or Acute on Chronic? @ -Acute, acute Uncomplicated (without systemic symptoms) or Complicated (systemic symptoms)? @ -default Side effects of treatment? @ -No Exacerbation, Progression, or Severe Exacerbation? @ -No Poses a threat to life or bodily function? How? (Chest pain, [place], DC, pneumonia, PE, COPD, DKA, ARF, appy, cholecystitis, CVA, Diverticulitis, Homicidal, Suicidal, threat to staff... and all critical care pts) @ -No Disposition Clinical Impression: Strain of neck muscle, Fall Disposition: HOME SELF-CARE Condition: Stable Instructions (If sedation given, give patient instructions): Cervical Strain (ED) Additional Instructions: Prescription for muscle relaxers has been sent to pharmacy. Please do follow-up with primary care physician in the next couple days for recheck. Please also follow-up with her neck doctor. Return for increased pain, weakness, worsening or changing symptoms or other concerns. Prescriptions: Cyclobenzaprine [Flexeril] 10 mg PO TID PRN #12 tablet PRN Reason: Pain Is patient prescribed a controlled substance at d/c from ED?: No Referrals: Shania Salinas [Primary Care Provider] - 1-2 days Time of Disposition: 18:55
--- NOTE | 2022-07-21 18:10 | CT ---
EXAMINATION TYPE: CT cervical spine wo con DATE OF EXAM: 07/21/2022 COMPARISON: CT January 04, 2019 HISTORY: neck pain following fall CT DLP: 431.3 mGycm. Automated Exposure Control for Dose Reduction was Utilized. TECHNIQUE: CT scan of the cervical spine is obtained without contrast, axial images are obtained, sa gittal and coronal reformatted images are also reviewed. FINDINGS: Cervical spine is visualized in its entirety from C1 through upper thoracic levels, demonst rates stable alignment without evidence of acute fracture or dislocation. Stable slight grade 1 anter olisthesis C2 on C3 and C3 on C4. Prevertebral soft tissue appears within normal limits. The C1-C2 a rticulation is within normal limits on the coronal images. Vertebral body heights are preserved. Ther e is anterior fusion plate with metallic disc material C5-C7 levels redemonstrated. Review of axial images shows persistent left paracentral bony protrusions at C5-C6 level effacing the anterior thecal sac. Lung apices show no pneumothorax. Heterogeneous thyroid gland redemonstrated. IMPRESSION: There is no acute fracture or dislocation evident in the cervical spine. No significant change from prior.
--- NOTE | 2022-07-21 18:11 | XR ---
EXAMINATION TYPE: XR thoracic spine complete DATE OF EXAM: 07/21/2022 CLINICAL HISTORY: Fall with mid back pain. TECHNIQUE: Frontal, lateral, and swimmer's view of thoracic spine are obtained. COMPARISON: None. FINDINGS: Thoracic spine show satisfactory alignment without evidence of acute fracture or dislocatio n. Vertebral body heights and disc space heights are preserved. Visualized ribs are intact bilateral ly. Surgical change to the lower cervical spine is noted. IMPRESSION: No acute fracture or dislocation is seen in the thoracic spine.
[2022-07-21] MEDS ORDERED: ACET/COD 300 MG/30 MG STARTER PACK 6 TAB BTL PO STA (18:53)
[2022-07-21] MEDS ORDERED: KETOROLAC 15 MG/ML 1 ML VIAL IVP STA (18:53)
[2022-07-21 19:05] VITALS: BP 113/61; PULSE 75; RESP 18
== END 2022-07-21 19:40 | disposition home or self-care (01) ==
LOC: EC 17:20
DX: S16.1XXA Strain of muscle, fascia and tendon at neck level, initial encounter (principal); E10.9 Type 1 diabetes mellitus without complications; J45.909 Unspecified asthma, uncomplicated; Z91.013 Allergy to seafood; W08.XXXA Fall from other furniture, initial encounter
CPT/HCPCS: 72072; 72125; 99285; 96374; 96375; J1170; J1885

== ENCOUNTER → 2023-01-13 | Outpatient (CLI) | payer BC, MEDICARE ==
--- NOTE | 2023-01-13 17:36 | US ---
EXAMINATION TYPE: US thyroid st tissue head/neck DATE OF EXAM: 01/13/2023 COMPARISON: 07/23/2021 CLINICAL INDICATION: Female, 62 years old with history of E04.2 NONTOXIC MULTINODULAR GOITER; Follow up nodules. Not on thyroid meds. GLAND SIZE: Right Lobe: 5.4 x 2.0 x 1.5 cm Overall Parenchyma: homogeneous Left Lobe: 5.6 x 2.6 x 1.9 cm Overall Parenchyma: homogeneous Isthmus Thickness: 0.4 cm NODULES RIGHT: # of nodules measured on right: 2 1. 0.8 X 0.7 x 0.4 cm, upper lateral, TR 4 hypoechoic nodule, which is wider than tall, with smooth margins, without echogenic foci. Prior size: 0.8 x 0.7 x 0.5 cm 2. 0.5 X 0.3 x 0.4 cm, lower mid, TR 4 hypoechoic nodule, which is wider than tall, with smooth mar gins, without echogenic foci. Prior size: 0.3 x 0.3 x 0.3 cm LEFT: # of nodules measured on left: 3 1. 2.6 X 1.8 x 1.7 cm, mid mid, mixed cystic and solid, predominantly solid heterogeneous hypoecho ic TR 4 nodule, which is wider than tall, with smooth margins, without echogenic foci. Prior size: 2.5 x 1.7 x 1.3 cm 2. 0.8 X 1.0 x 0.7 cm, upper mid solid TR 3 isoechoic nodule, which is wider than tall, with smooth margins, without echogenic foci. Prior size: 1.0 x 0.9 x 0.8 cm 3. 0.8 X 1.0 x 0.8 cm, lower mid, TR 4 hypoechoic nodule, which is wider than tall, with smooth mar gins, without echogenic foci. Prior size: 0.8 x 1.0 x 0.8 cm ISTHMUS: # of nodules measured in the isthmus: 0 Bilateral neck scanned, no evidence of lymphadenopathy. IMPRESSION: 1. Correlate for multinodular goiter. Multiple nodules are redemonstrated and are largely unchanged. The dominant TR 4 nodule on the left is minimally increased at 2.6 x 1.8 x 1.7 cm (versus 2.5 x 1.7 x 1.3 cm, previously). 2. Small 5 mm TR 4 nodule on the right is minimally increased as well from 3 mm.
== END | disposition home or self-care (01) ==
LOC: RADUSWWP 15:29
PROVIDERS: ATTEND Internal Medicine
DX: E04.2 Nontoxic multinodular goiter (principal)
CPT/HCPCS: 76536

== ENCOUNTER → 2023-02-23 | Outpatient (CLI) | payer BC, MEDICARE ==
[2023-02-23 08:36] LABS: INR 0.9 (<1.2)
[2023-02-23 08:37] LABS: Partial Thromboplastin Time 23.9 sec (22.0-30.0)
[2023-02-23 10:54] LABS: HCT 40.3 % (37.2-46.3); HGB 13.1 g/dL (12.0-15.0); MCHC 32.5 g/dL (32.0-37.0); MCV 89.4 FL (80.0-97.0); Mean Platelet Volume 10.7 FL (9.5-12.2); NRBC Per 100 WBC 0 X 10*3/uL (0.00-0.01); Platelet Count 267 X 10*3/uL (140-440); RBC 4.51 X 10*6/uL (4.10-5.20); RDW 13.9 % (11.5-14.5); WBC 4.99 X 10*3/uL (4.50-10.00)
[2023-02-23 15:40] LABS: ALT 26 U/L (8-44); AST 21 U/L (13-35); Albumin 4.1 g/dL (3.8-4.9); Albumin/Globulin Ratio 1.64 Ratio (1.60-3.17); Alkaline Phosphatase 86 U/L (41-126); BUN/Creat Ratio 23.22 Ratio (12.00-20.00); Blood Urea Nitrogen 20.9 mg/dL (9.0-27.0); Calcium 9.2 mg/dL (8.7-10.3); Carbon Dioxide 27.6 mmol/L (21.6-31.8); Chloride 104 mmol/L (96-109); Globulin 2.5 g/dL (1.6-3.3); Glucose 115 mg/dL (70-110); Potassium 4.2 mmol/L (3.5-5.5); Sodium 141 mmol/L (135-145); Total Bilirubin 0.4 mg/dL (0.3-1.2); Total Protein 6.6 g/dL (6.2-8.2)
[2023-02-23 16:39] LABS: Appearance,Urine Clear (Clear); Bilirubin,Urine Negative (Negative); Blood,Urine Trace (Negative); Color,Urine Yellow (Yellow); Ketones,Urine Negative (Negative); Nitrite,Urine Negative (Negative); Specific Gravity,Urine 1.014 (1.001-1.030); Urobilinogen,Urine 0.2 E.U./DL
[2023-02-23 16:49] LABS: Bacteria,Urine None Seen (None Seen)
== END | disposition home or self-care (01) ==
LOC: LABPAT 08:03
PROVIDERS: ATTEND Orthopaedic Surgery
DX: Z01.818 Encounter for other preprocedural examination (principal); M16.11 Unilateral primary osteoarthritis, right hip; R94.31 Abnormal electrocardiogram [ECG] [EKG]
CPT/HCPCS: 80053; 81001; 85027; 85610; 85730; 86850; 86900; 86901; 87070; 93005

== ENCOUNTER 2023-03-03 05:34 | Observation (INO) | payer BC, MEDICARE ==
[~2023-03-03 05:34] MED LIST: ACETAMINOPHEN TAB 500 MG TAB PO PRN; GABAPENTIN 300 MG CAP PO PRN; MELOXICAM 7.5 MG TAB PO PRN; TRANEXAMIC 1,000 MG/100ML-NACL 1,000 MG in SALINE 1 100ML.BAG IVPB PRN
[2023-03-03] MEDS ORDERED: ONDANSETRON 4 MG/2 ML VIAL ONE (06:14)
[2023-03-03] MEDS ORDERED: LIDOCAINE 1% (10MG/ML) FOR IV START INTRADERMA ONE (06:30)
[2023-03-03] MEDS ORDERED: LACTATED RINGERS 1,000 ML IV ONE ×2 (06:30→08:21)
[2023-03-03 06:47] LABS: Glucose,Whole Blood 148 mg/dL (70-110)
[2023-03-03] MEDS ORDERED: MIDAZOLAM 2 MG/2 ML VIAL IVP ONE (06:50)
[2023-03-03] MEDS ORDERED: fentaNYL (PF) 50 MCG/ML 2 ML AMP IVP ONE (06:50)
--- NOTE | 2023-03-03 07:13 | P.ANPRN ---
Procedure Note - Anesthesia - Nerve Block Performed Right Eze Single Time Out Performed: Yes Date of Procedure: 03/03/23 Procedure Start Time: 06:50 Procedure Stop Time: 06:56 Location of Patient: PreOp Indication: Acute Post-Operative Pain, Requested by Surgeon Sedation Type: Sedate with meaningful contact maintained Preparation: Sterile Prep Position: Supine Needle Types: Pajunk Needle Gauge: 21 Ultrasound used to visualize needle placement: Yes Ultrasound used to observe medication spread: Yes Injectate: 0.5% Ropivacaine (see comment for volume) (15 ml + lidocaine 1% with epi 1/200 k 15 ml) Blood Aspirated: No Pain Paresthesia on Injection Noted: No Resistance on Injection: Normal Image Stored and Saved: Yes Events: Uneventful and Well Tolerated
[2023-03-03] MEDS ORDERED: ROPIVACAINE 5 MG/ML 30 ML VIAL MISCELLANE ONE ×2 (07:33→08:15)
[2023-03-03] MEDS ORDERED: ceFAZolin 1,000 MG in SODIUM CHLORIDE 0.9% 1,000 ML IRRIGATION ONE (07:34)
--- NOTE | 2023-03-03 08:18 | P.OP ---
Date of Procedure: 03/03/23 Preoperative Diagnosis: Severe osteoarthritis right hip Postoperative Diagnosis: Severe osteoarthritis right hip Procedure(s) Performed: Right total hip arthroplasty with a direct anterior approach Implants: [employer] Polarstem standard size 4 with a collar [employer] R3, 3 hole hemispherical acetabular shell, 52 mm [employer] Reflection 6.5 mm cancellus screw, 20 mm 2 [employer] R3, XLPE 20 acetabular liner [employer] Oxinium femoral head 36 mm, +4 All components were press-fit. The articulation is Oxinium on polyethylene. Anesthesia: spinal Surgeon: Tanner Ness Foreign Collection Clerk #1: Mallory Herring Estimated Blood Loss (ml): 300 Pathology: none sent Condition: stable Disposition: PACU Indications for Procedure: After failure of conservative treatment we discussed the surgical and nonsu rgical treatment options at length. Patient wishes to proceed with a total hip arthroplasty with a direct anterior approach. Complications specific to this procedure were discussed at length, including but not limited to infection, leg length discrepancy, dislocation, nerve injury, and fracture. Covid-19 was also discussed at length with the patient, and they are aware of the current policies and procedures. The patient was given the option of delaying surgery, but they elect to proceed knowing these risks. Patient is aware of all these complications and informed consent was obtained Operative Findings: The operative findings are consistent with severe osteoarthritis of the right hip Description of Procedure: The patient was seen and evaluated in the preoperative area and the consent was reviewed. The operative site was marked with a skin marker. The patient verified the procedure and operative site. A LUIS MANUEL block was placed by anesthesia in the preoperative area. The patient was then brought to the operating room and given preoperative antibiotics intravenously. 1 g of Tranexamic acid was also given intravenously. A spinal anesthetic was administered by the anesthesia department. The patient was then placed on the [place] table with the bony prominences well-padded. The hip area was then prepped with a ChloraPrep solution and draped in the usual sterile fashion. A universal timeout was then performed, which confirmed the patient's name, surgical site, ALLERGIES, and procedure being performed on the consent. Next the incision site was located at 1 cm distal and 4 cm lateral to the anterior superior iliac spine. The skin and subcutaneous tissues were sharply incised. Incision was carefully dissected down to the fascia overlying the tensor fascia lory muscle. This fascia was then incised in line with the muscle fibers. Care was taken to stay laterally in order to avoid injuring the lateral femoral cutaneous nerve. Next, using blunt finger dissection, the tensor fascia lory muscle was dissected off its investing fascia. The muscle was then carefully retracted laterally with a cobra retractor over the lateral neck of the femur. Next, the circumflex vessels were identified and cauterized using the Aquamantis device. The anterior hip capsule was then exposed. The capsule was then opened and an inverted T fashion. The retractors were then placed intracapsularly. The retractors were maintained intracapsular throughout the procedure. The proximal femur was then visualized. Fluoroscopic x-rays were then taken in order to evaluate the preoperative leg lengths. A small amount of traction was placed on the leg. The femoral neck was then osteotomized at the appropriate level above the lesser trochanter. A small wedge of bone was then removed from the remaining femoral head. Next, using a corkscrew the femoral head was removed from the acetabulum. On gross visual inspection, the femoral head had complete loss of articular cartilage and multiple periarticular osteophytes. The femoral head was then measured. Attention was then turned to the acetabulum. The acetabulum was exposed and any remaining labrum was excised. Sequential reaming of the acetabulum was performed using fluoroscopic guidance until there was a good bed of bleeding cancellus bone. When the appropriate size was reached, a trial was then placed. The position and fit of the trial was checked with fluoroscopy. The trial was then removed. Then, using fluoroscopic guidance, the final implant was impacted at 20 of anteversion and 40 of abduction, and fully seated in the acetabulum. 2 screws were then placed in the acetabulum. Again fluoroscopy was used to check position of the screws. Next, the liner was then impacted, with a 20 elevated liner located in the anterior superior quadrant. Component locking was confirmed. Attention was then directed to the femur. With the aid of the [place] table, the femur was externally rotated to approximately 130, extended, and adducted under the opposite leg. A side hook was then placed under the proximal femur, and the side hook elevator was used to elevate the proximal femur while releasing the capsule. Retractors were then placed. A capsular release was performed, as well as a release of the conjoined tendon, which afforded excellent v isualization of the proximal femur. Next, a box osteotome was used to lateralize the proximal femur. A ammunition and explosives handler was then used to locate the femoral canal. Sequential broaching was then performed with appropriate size which afforded excellent fixation in the proximal femur. A trial was then placed with appropriate head and neck, and the hip was gently reduced with the aid of the [place] table. Fluoroscopy was then used to check position of the components, as well as to evaluate the leg lengths and offset. The leg lengths and offset were measured as closely as possible to ensure stability of the hip. The hip was then gently dislocated and the trials were then removed. Final implants were then impacted and the hip was again reduced. Final fluoroscopic x-rays confirmed that the components were in anatomic position. The leg lengths and offset were measured and were found to coincide with the trial measurements. The hip was also taken through range of motion, and found to be stable. The hip was then copiously irrigated with antibiotic solution with pulsatile lavage. The hip was then irrigated with Irrisept solution. The soft tissues were then injected with a ropivacaine solution. A second dose of 1 g of Tranexamic acid was also given intravenously. The fascia was then closed with 2-0 strata fix suture. The subcutaneous tissue was closed with 3-0 Vicryl. The subcuticular tissue was closed with 3-0 strata fix suture. The skin was then closed with Exofin skin glue. After the glue and dried, and Optifoam silver impregnated dressing was applied. The patient was t hen transferred to the recovery room in stable condition. The unit assistant SAILAJA Campos was required due to the complexity of surgery, and the need for skilled surgical appliances salesperson for positioning, draping, exposure, retraction, and closure of the wound.
[2023-03-03] MEDS ORDERED: HYDROmorphone 0.5 MG/0.5 ML SYRINGE IVP PRN ×2 (08:47)
[2023-03-03] MEDS ORDERED: MAGNESIUM HYDROXIDE 2,400 MG/30 ML CUP PO PRN (08:47)
[2023-03-03] MEDS ORDERED: NALOXONE 0.4 MG/ML 1 ML VIAL IV PRN (08:47)
[2023-03-03] MEDS ORDERED: HYDROmorphone 0.5 MG/0.5 ML SYRINGE IVP ONE ×3 (08:48→10:49)
[2023-03-03] MEDS ORDERED: HYDROcodone/APAP 7.5-325MG 1 EACH TAB PO PRN (08:49)
[2023-03-03] MEDS ORDERED: diphenhydrAMINE 50 MG/ML 1 ML VIAL IVP ONE (08:49)
[2023-03-03] MEDS ORDERED: KETOROLAC 15 MG/ML 1 ML VIAL IVP PRN (08:52)
[2023-03-03 08:56] LABS: Glucose,Whole Blood 140 mg/dL (70-110)
--- NOTE | 2023-03-03 08:57 | FL ---
EXAMINATION TYPE: FL guidance operating room, XR Hip Limited RT Intraoperative/procedural fluoroscopi c services were provided. Total fluoroscopy time is 50 seconds with a total of 3 submitted images to PACS. Please see the operative/procedural note for further details. DAP: 3.7166 Gycm2
--- NOTE | 2023-03-03 09:18 | XR ---
EXAMINATION TYPE: XR Hip Limited RT DATE OF EXAM: 03/03/2023 9:11 AM CLINICAL INDICATION:Female, 62 years old with history of Status post hip surgery, assess surgical ali gnment; [facility] COMPARISON: 12/13/2020. TECHNIQUE: XR Hip Limited RT; hip was examined in the frontal and lateral projections and a AP pelvis . FINDINGS: Post arthroplasty changes, hardware is intact, alignment is appropriate. No evidence of fra cture. Postoperative changes of the soft tissues with subcutaneous gas. No evidence of any acute osse ous pathology or joint dislocation. IMPRESSION: Hip arthroplasty with hardware intact and in appropriate alignment. No acute fracture.
[2023-03-03] MEDS ORDERED: ONDANSETRON 4 MG/2 ML VIAL IVP ONE (10:48)
[2023-03-03 11:48] LABS: Glucose,Whole Blood 131 mg/dL (70-110)
[2023-03-03] MEDS: HYDROmorphone 1 MG/ML 1 ML SYRINGE IVP PRN ×3 (14:19→23:53)
[2023-03-03 16:43] LABS: Glucose,Whole Blood 176 mg/dL (70-110)
[2023-03-03] MEDS: ONDANSETRON 4 MG/2 ML VIAL IVP PRN (18:13)
[2023-03-03] MEDS: ASPIRIN 81 MG PO SCH (19:33)
[2023-03-03] MEDS: SENNOSIDES-DOCUSATE SODIUM 1 EACH TAB PO SCH (19:33)
[2023-03-03] MEDS: SODIUM CHLORIDE 0.9% 1,000 ML IV SCH (19:41)
[2023-03-03 21:06] LABS: Glucose,Whole Blood 257 mg/dL (70-110)
[2023-03-04] MEDS: SODIUM CHLORIDE 0.9% 1,000 ML IV SCH ×2 (00:41→20:31)
[2023-03-04] MEDS: ONDANSETRON 4 MG/2 ML VIAL IVP PRN (03:44)
[2023-03-04 05:48] LABS: Glucose,Whole Blood 145 mg/dL (70-110)
[2023-03-04] MEDS: HYDROcodone/APAP 7.5-325MG 1 EACH TAB PO PRN ×2 (06:02→21:44)
[2023-03-04] MEDS: ASPIRIN 81 MG PO SCH ×2 (07:52→19:53)
[2023-03-04] MEDS ORDERED: ALBUTEROL NEBULIZED 2.5 MG/3 ML INHALATION PRN (08:24)
[2023-03-04] MEDS ORDERED: DEXTROSE 50% SYRINGE 50 ML IVP PRN ×2 (08:24)
[2023-03-04] MEDS ORDERED: NYSTATIN 100,000UNIT/GM CREAM 30 GM TUBE TOPICAL PRN (08:24)
[2023-03-04 08:34] LABS: Basophils # (A) 0.03 X 10*3/uL (0.00-0.10); Basophils % (A) 0.4 %; Eosinophils # (A) 0.03 X 10*3/uL (0.04-0.35); Eosinophils % (A) 0.4 %; HCT 31.3 % (37.2-46.3); HGB 10.1 g/dL (12.0-15.0); Lymphocytes # (A) 1.49 X 10*3/uL (0.90-5.00); Lymphocytes % (A) 19.2 %; MCHC 32.3 g/dL (32.0-37.0); MCV 89.9 FL (80.0-97.0); Mean Platelet Volume 10.8 FL (9.5-12.2); Monocytes # (A) 1.04 X 10*3/uL (0.20-1.00); Monocytes % (A) 13.4 %; NRBC Per 100 WBC 0 X 10*3/uL (0.00-0.01); Neutrophils # (A) 5.17 X 10*3/uL (1.80-7.70); Neutrophils % (A) 66.3 %; Platelet Count 112 X 10*3/uL (140-440); RBC 3.48 X 10*6/uL (4.10-5.20); RDW 14.1 % (11.5-14.5); WBC 7.78 X 10*3/uL (4.50-10.00)
[2023-03-04 08:49] VITALS: RESP 20
--- NOTE | 2023-03-04 10:15 | P.PN ---
Subjective Progress Note Date: 03/04/23 This is a 62-year-old female who is status post right total hip arthroplasty with direct anterior approach. This is postoperative day #1 and patient is seen and evaluated at bedside with Dr. Tanner Ness. Patient states that she did very well with physical therapy, but started to feel dizzy after working with them. Patient denies any fever/chills, numbness, weakness, tingling, abdominal pain, shortness of breath or chest pain. Objective - Vital Signs Vital signs: Vital Signs Temp 98.6 F 03/04/23 07:55 Pulse 97 03/04/23 07:55 Resp 20 03/04/23 07:55 BP 115/67 03/04/23 07:55 Pulse Ox 93 L 03/04/23 07:55 FiO2 Intake & Output 03/03/23 03/04/23 03/04/23 18:59 06:59 18:59 Intake Total 2031 Output Total 300 Balance 1731 Weight 100.7 kg Intake: IV 1351 Intake, IV Titration 330 Amount Sodium Chloride 0.9% 1, 280 000 ml @ 70 mls/hr IV . [id number] TRAVIS Rx#:[id number] ceFAZolin 2 gm In Sodium 50 Chloride 0.9% 50 ml @ 100 mls/hr IVPB Q8H TRAVIS Rx#: [id number] Oral 350 Output: Estimated Blood Loss 300 Other: Voiding Method Toilet # Voids 1 2 - Exam Vital signs are stable. Patient is in no acute distress and is alert and oriented 3. Calf is soft and nontender to palpation. Dressing is clean, dry, and intact. Patient has full foot and ankle motion without pain or difficulty. Sensation intact. Neurovascular status and circulatory status are intact. - Labs CBC & Chem 7: 03/04/23 05:46 Labs: Abnormal Lab Results - Last 24 Hours (Table) 03/03/23 03/03/23 03/03/23 Range/Units 11:45 16:42 21:03 RBC (4.10-5.20) X 10*6/uL Hgb (12.0-15.0) g/dL Hct (37.2-46.3) % Plt Count (140-440) X 10*3/uL Monocytes # (0.20-1.00) X 10*3/uL Eosinophils # (0.04-0.35) X 10*3/uL POC Glucose (mg/dL) 131 H 176 H 257 H (70-110) mg/dL 03/04/23 03/04/23 Range/Units 05:46 05:46 RBC 3.48 L (4.10-5.20) X 10*6/uL Hgb 10.1 L (12.0-15.0) g/dL Hct 31.3 L (37.2-46.3) % Plt Count 112 L (140-440) X 10*3/uL Monocytes # 1.04 H (0.20-1.00) X 10*3/uL Eosinophils # 0.03 L (0.04-0.35) X 10*3/uL POC Glucose (mg/dL) 145 H (70-110) mg/dL Assessment and Plan (1) Osteoarthritis of right hip Current Visit: Yes Status: Acute Code(s): M16.11 - UNILATERAL PRIMARY OSTEOARTHRITIS, RIGHT HIP SNOMED Code(s): 003744516615864 (2) S/P total right hip arthroplasty Current Visit: Yes Status: Acute Code(s): Z96.641 - PRESENCE OF RIGHT ARTIFICIAL HIP JOINT SNOMED Code(s): 126574049239 Plan: Continue routine postop care and pain control. Continue anticoagulation with aspirin. Weightbearing as tolerated with a walker. Leave dressing in place for 7 days. Appreciate input from internal medicine. Anticipate discharge home with homecare in the next 24-48 hours.
[2023-03-04] MEDS: CHOLECALCIFEROL 25 MCG (1000 IU) TABLET PO SCH (10:31)
[2023-03-04] MEDS: MULTIVITAMINS, THERA 1 EACH TAB PO SCH (10:31)
[2023-03-04] MEDS: CYCLOBENZAPRINE 10 MG TAB PO PRN ×2 (10:31→19:58)
[2023-03-04] MEDS: ATORVASTATIN 10 MG TAB PO SCH (10:31)
[2023-03-04] MEDS: CALCIUM CARB-VIT D 500 MG-5 MCG TAB PO SCH (10:31)
[2023-03-04] MEDS: HYDROmorphone 1 MG/ML 1 ML SYRINGE IVP PRN ×3 (11:41→19:52)
[2023-03-04 11:48] LABS: Glucose,Whole Blood 181 mg/dL (70-110)
[2023-03-04] MEDS: INSULIN ASPART (NovoLOG) 100 UNIT/ML VIAL SQ SCH ×3 (14:33→21:44)
[2023-03-04 16:41] LABS: Glucose,Whole Blood 143 mg/dL (70-110)
[2023-03-04] MEDS: SENNOSIDES-DOCUSATE SODIUM 1 EACH TAB PO SCH (19:58)
[2023-03-04 20:19] LABS: Glucose,Whole Blood 222 mg/dL (70-110)
--- NOTE | 2023-03-04 23:40 | CONS ---
CONSULTATION REASON FOR CONSULTATION: Advice regarding asthma, diabetes mellitus, and other medical issues, requested by Surgery. HISTORY OF PRESENT ILLNESS: This is a 62-year-old woman with a past medical history of multiple medical issues including asthma, diabetes mellitus, and other medical issues, underwent right total knee joint arthroplasty. Currently, the patient has experienced severe pain and actually the patient is crying and the platelets are found to be 112. The preop platelets are 267. There is no history of bleeding. No chest pain. No palpitations. No fever. Blood sugar is being closely monitored. PAST MEDICAL HISTORY: Reviewed include diabetes mellitus, asthma. Rest of the history and rest of the chart is also reviewed. HOME MEDICATIONS: Reviewed include albuterol. Doses and rest of medications reviewed. ALLERGIES: Shellfish. FAMILY HISTORY: History of thyroid cancer. SOCIAL HISTORY: No history of smoking or alcohol. REVIEW OF SYSTEMS: Fourteen-point review is negative except as mentioned earlier. PHYSICAL EXAMINATION: VITAL SIGNS: Pulse is 97, blood pressure 115/67, respirations 20. HEENT: Conjunctivae normal. NECK: No jugular venous distention. CARDIOVASCULAR: S1 and S2 muffled. RESPIRATORY: Breath sounds diminished at the bases. ABDOMEN: Soft and nontender. LEGS: Status post right total knee joint arthroplasty. NERVOUS SYSTEM: No focal deficits. SKIN: No ulcer, rash, bleeding. JOINTS: No active deforming arthropathy. LABORATORY DATA: Reviewed. ASSESSMENT: 1. Status post right total knee joint arthroplasty. 2. Thrombocytopenia postoperative. 3. Diabetes mellitus, type 2. 4. Asthma. 5. Fibromyalgia. 6. Degenerative joint disease. 7. History of thyroid disorder. 8. Multiple medical issues. 9. History of MRSA. 10.Severe pain. RECOMMENDATIONS: This is a 62-year-old woman, who presented with multiple complex medical issues. Recommended to continue current medications. Exact etiology of thrombocytopenia is unknown. I would recommend repeat labs and recommend close followup with Dr. Solis as an outpatient, with Primary Physician recommended continued followup. Otherwise, the patient is started on aspirin for DVT prophylaxis. We will continue to monitor and follow along with Orthopedic Surgery. Further recommendations to follow. Try to avoid NSAIDs. MMODL / IJN: [id number] /
[2023-03-05] MEDS: HYDROcodone/APAP 7.5-325MG 1 EACH TAB PO PRN ×2 (03:45→09:49)
[2023-03-05] MEDS: SODIUM CHLORIDE 0.9% 1,000 ML IV SCH (03:49)
[2023-03-05 06:08] LABS: Glucose,Whole Blood 310 mg/dL (70-110)
[2023-03-05] MEDS: INSULIN ASPART (NovoLOG) 100 UNIT/ML VIAL SQ SCH ×2 (08:08→11:18)
[2023-03-05] MEDS: ASPIRIN 81 MG PO SCH (08:09)
[2023-03-05] MEDS: CHOLECALCIFEROL 25 MCG (1000 IU) TABLET PO SCH (08:09)
[2023-03-05] MEDS: CALCIUM CARB-VIT D 500 MG-5 MCG TAB PO SCH (08:09)
[2023-03-05] MEDS: ATORVASTATIN 10 MG TAB PO SCH (08:09)
[2023-03-05] MEDS: MULTIVITAMINS, THERA 1 EACH TAB PO SCH (08:09)
[2023-03-05] MEDS: CYCLOBENZAPRINE 10 MG TAB PO PRN (08:19)
[2023-03-05 11:01] LABS: HCT 27.5 % (37.2-46.3); HGB 8.8 g/dL (12.0-15.0); MCH 29.1 pg (27.0-32.0); MCV 91.1 FL (80.0-97.0); Mean Platelet Volume 11.2 FL (9.5-12.2); NRBC Per 100 WBC 0 X 10*3/uL (0.00-0.01); Platelet Count 101 X 10*3/uL (140-440); RBC 3.02 X 10*6/uL (4.10-5.20); RDW 14.1 % (11.5-14.5); WBC 8.81 X 10*3/uL (4.50-10.00)
[2023-03-05 11:02] LABS: Basophils # (A) 0.03 X 10*3/uL (0.00-0.10); Basophils % (A) 0.3 %; Eosinophils # (A) 0.09 X 10*3/uL (0.04-0.35); Lymphocytes # (A) 1.61 X 10*3/uL (0.90-5.00); Lymphocytes % (A) 18.3 %; Monocytes # (A) 1.36 X 10*3/uL (0.20-1.00); Monocytes % (A) 15.4 %; Neutrophils % (A) 64.8 %
[2023-03-05 11:09] LABS: Glucose,Whole Blood 239 mg/dL (70-110)
[2023-03-05 11:13] LABS: BUN/Creat Ratio 15.14 Ratio (12.00-20.00); Blood Urea Nitrogen 10.6 mg/dL (9.0-27.0); Carbon Dioxide 27.4 mmol/L (21.6-31.8); Chloride 101 mmol/L (96-109); Glucose 284 mg/dL (70-110); Potassium 4.1 mmol/L (3.5-5.5); Sodium 135 mmol/L (135-145)
[2023-03-05 11:14] LABS: ALT 19 U/L (8-44); AST 41 U/L (13-35); Albumin 3.1 g/dL (3.8-4.9); Albumin/Globulin Ratio 1.94 Ratio (1.60-3.17); Alkaline Phosphatase 73 U/L (41-126); Globulin 1.6 g/dL (1.6-3.3); Total Bilirubin 0.4 mg/dL (0.3-1.2); Total Protein 4.7 g/dL (6.2-8.2)
[2023-03-05 13:50] VITALS: BP 103/63; PULSE 96; TEMP 98.1
--- NOTE | 2023-03-05 14:26 | P.DS ---
Providers Date of admission: 03/04/23 08:10 Expected date of discharge: 03/05/23 Attending physician: Tanner Ness Consults: 03/03/23 08:47 Consult Physician Routine Consulting Provider: Juanjose Arizmendi Consult Reason/Comments: medical management Do you want consulting provider notified?: Yes Primary care physician: Shania Salinas - Discharge Diagnosis(es) (1) Osteoarthritis of right hip Current Visit: Yes Status: Acute (2) S/P total right hip arthroplasty Current Visit: Yes Status: Acute Hospital Course: This is a 62-year-old female with known history of degenerative arthritis of the right hip. The patient presented for evaluation as an outpatient. After discussion and consideration patient elects to proceed with total hip arthroplasty. The patient is seen preoperatively by Dr. Ness and medically cleared for surgery by their primary care physician. Patient is admitted to [facility] on 03/03/2023 for total hip arthroplasty. The procedure is performed without complication or sequelae. The patient is doing well postoperatively. Labs and vital signs are stable on day of discharge. On day of discharge patient's hip incision is healing well. There is minimal er ythema. There is no drainage noted at this time. There is minimal soft tissue swelling to the hip and thigh. Patient has full foot and ankle motion without difficulty or pain. Calf is soft and nontender to palpation. Neurovascular status to the right lower extremity is intact. Patient is discharged home in good condition. Please see med rec for accurate list of home medications. Plan - Discharge Summary Discharge Rx Participant: Yes New Discharge Prescriptions: New Aspirin [Adult Low Dose Aspirin EC] 81 mg PO BID 30 Days #60 tab HYDROcodone/APAP 7.5-325MG [Babylon 7.5-325] 1 - 2 tab PO Q6H PRN #32 tab PRN Reason: Pain Sennosides [Senokot] 2 tab PO DAILY PRN #60 tablet PRN Reason: Constipation Continue Multivitamins, Thera [Multivitamin (formulary)] 1 tab PO DAILY Cholecalciferol (Vitamin D3) [Vitamin D3] 2,000 unit PO DAILY Acetaminophen Tab [Tylenol] 1,000 mg PO Q6HR PRN PRN Reason: Pain Nystatin 100,000Unit/gm Cream [Mycostatin Cream] 1 applic TOPICAL BID PRN PRN Reason: Rash Calcium Carbonate/Vitamin D3 [Calcium 250-D Tablet] 1 each PO DAILY HYDROcodone/APAP 5-325MG [Babylon 5-325] 1 tab PO Q6HR PRN PRN Reason: Pain estradioL [estradioL (Once Weekly) 0.05 mg Patch] 1 patch TRANSDERM Q3D Albuterol Inhaler [Ventolin Hfa Inhaler] 1 - 2 puff INHALATION Q6H PRN PRN Reason: Shortness Of Breath INSULIN LISPRO (For Pump) [humaLOG (For Pump)] 0.01 units SQ-PUMP CONTINUOUS Cyclobenzaprine [Flexeril] 10 mg PO TID PRN #20 tablet PRN Reason: Pain Rosuvastatin Calcium 5 mg PO DAILY estradioL [Yuvafem] 10 mcg VG Q3D Discharge Medication List Acetaminophen Tab [Tylenol] 1,000 mg PO Q6HR PRN 01/04/19 [History] Cholecalciferol (Vitamin D3) [Vitamin D3] 2,000 unit PO DAILY 01/04/19 [History] Multivitamins, Thera [Multivitamin (formulary)] 1 tab PO DAILY 01/04/19 [History] Calcium Carbonate/Vitamin D3 [Calcium 250-D Tablet] 1 each PO DAILY 03/12/22 [History] Nystatin 100,000Unit/gm Cream [Mycostatin Cream] 1 applic TOPICAL BID PRN 03/12/22 [History] Albuterol Inhaler [Ventolin Hfa Inhaler] 1 - 2 puff INHALATION Q6H PRN 02/26/23 [History] HYDROcodone/APAP 5-325MG [Babylon 5-325] 1 tab PO Q6HR PRN 02/26/23 [History] INSULIN LISPRO (For Pump) [humaLOG (For Pump)] 0.01 units SQ-PUMP CONTINUOUS 02/26/23 [History] Rosuvastatin Calcium 5 mg PO DAILY 02/26/23 [History] estradioL [Yuvafem] 10 mcg VG Q3D 02/26/23 [History] estradioL [estradioL (Once Weekly) 0.05 mg Patch] 1 patch TRANSDERM Q3D 02/26/23 [History] Aspirin [Adult Low Dose Aspirin EC] 81 mg PO BID 30 Days #60 tab 03/03/23 [Rx] HYDROcodone/APAP 7.5-325MG [Babylon 7.5-325] 1 - 2 tab PO Q6H PRN #32 tab 03/03/23 [Rx] Sennosides [Senokot] 2 tab PO DAILY PRN #60 tablet 03/03/23 [Rx] Cyclobenzaprine [Flexeril] 10 mg PO TID PRN #20 tablet 03/05/23 [Rx] Follow up Appointment(s)/Referral(s): [facility],Home Care [NON-STAFF] - 1-2 Days (Zoltan Mueller will call you to schedule your in home physical therapy visits. ) Tanner Ness DO [Doctor of Osteopathic Medicine] - 03/13/23 2:30 pm Ambulatory/Diagnostic Orders: Walker w/ Wheels [DME.AMB1] Time Frame: 3 Months, Location: None Selected Activity/Diet/Wound Care/Special Instructions: Weightbearing as tolerated with walker. Leave dressing intact. Dressing may be removed by home care nurse or by patient in 7 days. Then change dressing twice daily until follow up. May shower with initial dressing intact and after removal. If dressing become saturated, please remove. Please take aspirin 81mg twice daily for 30 days to prevent blood clots. Recommend use of compression stockings daily until follow up to help prevent swelling and blood clots. May remove at night before sleeping. Please follow-up with [facility] in 2 weeks and call with any questions or concerns, . Discharge Disposition: HOME WITH HOME HEALTH SERVICES
== END 2023-03-05 14:43 | disposition home health service (06) ==
LOC: OR 05:34 → 4SSUR 08:35 → OR 03-04 08:10 → 4SSUR 03-04 08:10
PROVIDERS: ADMIT Orthopaedic Surgery; ATTEND Orthopaedic Surgery
DX: M16.11 Unilateral primary osteoarthritis, right hip (principal); M25.751 Osteophyte, right hip; G89.18 Other acute postprocedural pain; D69.6 Thrombocytopenia, unspecified; E11.9 Type 2 diabetes mellitus without complications; J45.909 Unspecified asthma, uncomplicated; M79.7 Fibromyalgia; Z20.822 Contact with and (suspected) exposure to COVID-19; Z86.14 Personal history of Methicillin resistant Staphylococcus aureus infection; Z96.651 Presence of right artificial knee joint; Z79.899 Other long term (current) drug therapy
CPT/HCPCS: 96376 ×2; 96365; 96372; 96375; 97116; 97161; 97535; 97166; 64447; 80053; 85025 ×2; 83036; 87635; 73501; 27130; G0378 ×2; C1776; J2250; J1200; J0690 ×2; J2405 ×2; J3010; J1170 ×3; J2795; J1885

== ENCOUNTER 2023-03-11 16:45 | Observation (INO) | payer BC, MEDICARE ==
--- NOTE | 2023-03-11 17:44 | XR ---
EXAMINATION TYPE: XR KUB DATE OF EXAM: 03/11/2023 5:39 PM CLINICAL INDICATION:Female, 62 years old with history of constipation; COMPARISON: None. TECHNIQUE: One radiographic view of the abdomen was obtained. FINDINGS: Moderate amount of stool seen throughout the colon. The bowel gas pattern is nonspecific wi thout dilated loops of small or large bowel. There is no evidence for organomegaly or pneumoperitoneu m. The osseous structures are intact. No abnormal calcifications are present. Fecal material and ga s are demonstrated throughout the colon and rectum. Right hip arthroplasty changes partially visualiz ed. IMPRESSION: Moderate stool burden, otherwise Nonspecific bowel gas pattern without radiographic evidence for acut e process.
[2023-03-11] MEDS: PEG 3350 (236 GM/BTL) + LYTES 4,000 ML BOTTLE PO ONE (19:05)
--- NOTE | 2023-03-11 19:33 | ED ---
Abdominal Pain HPI - General Chief Complaint: Abdominal Pain Stated Complaint: Constipation Time Seen by Provider: 03/11/23 16:50 Source: patient, EMS Mode of arrival: EMS - History of Present Illness Initial Comments: 62 year old female presents to ED for constipation. She has not pooped since . She was started on norco s/p hip replacement on the . She is taking sennakot at home post surgery. After not having a bowel movement for a couple of days she has been taking fiber supplementations, Colace, enemas, suppositories, lactulose, milk of mag and continues to have bloating and abd pain. States she had bad constipation after neck surgery years ago which lead to a heart rate of 200, severely elevated glucose levels and she wound up in the ICU. Patient concerned for same outcome. - Related Data Home Medications Medication Instructions Recorded Confirmed Acetaminophen Tab [Tylenol] 1,000 mg PO Q6HR PRN 01/04/19 03/12/23 Multivitamins, Thera [Multivitamin 1 tab PO DAILY 01/04/19 03/12/23 (formulary)] Calcium Carbonate/Vitamin D3 1 tab PO DAILY 03/12/22 03/12/23 [Calcium 250-D Tablet] Albuterol Inhaler [Ventolin Hfa 1 - 2 puff INHALATION RT-Q6H PRN 02/26/23 03/12/23 Inhaler] Rosuvastatin Calcium 5 mg PO DAILY 02/26/23 03/12/23 estradioL [Yuvafem] 10 mcg VG Q3D 02/26/23 03/12/23 estradioL [estradioL (Once Weekly) 1 patch TRANSDERM Q3D 02/26/23 03/12/23 0.05 mg Patch] Cholecalciferol [Vitamin D3 (25 50 mcg PO DAILY 03/12/23 03/12/23 Mcg = 1000 Iu)] Insulin Aspart (For Pump) [NovoLOG 0.01 unit SQ-PUMP CONTINUOUS 03/12/23 03/12/23 (For Pump)] Previous Rx's Medication Instructions Recorded Aspirin [Adult Low Dose Aspirin EC] 81 mg PO BID 30 Days #60 tab 03/03/23 Cyclobenzaprine [Flexeril] 10 mg PO TID PRN #20 tablet 03/05/23 Docusate [Colace] 100 mg PO BID #60 cap 03/12/23 Famotidine [Pepcid] 20 mg PO BID 15 Days #30 tab 03/12/23 Lactulose [Constulose] 20 gm PO TID #240 ml 03/12/23 polyethylene glycoL 3350 [Miralax] 17 gm PO DAILY #30 packet 03/12/23 traMADol HCl [Ultram] 50 mg PO Q4HR PRN 3 Days #30 tab 03/12/23 Allergies Allergy/AdvReac Type Severity Reaction Status Date / Time shellfish derived [Shrimp] Allergy Rash/Hives Verified 03/12/23 07:18 Review of Systems ROS Statement: Those systems with pertinent positive or pertinent negative responses have been documented in the HPI. ROS Other: All systems not noted in ROS Statement are negative. Past Medical History Past Medical History: Asthma, Diabetes Mellitus, Fibromyalgia, Hyperlipidemia, Osteoarthritis (OA), Thyroid Disorder Additional Past Medical History / Comment(s): DM type I, lupus of the skin only, ankylosing spondylitis, interstitial cystitis, thyroid goiter History of Any Multi-Drug Resistant Organisms: MRSA Date of last positivie culture/infection: 2015 MDRO Source:: skin on breast Past Surgical History: Back Surgery, Bariatric Surgery, Breast Surgery, Section, Hysterectomy, Orthopedic Surgery Additional Past Surgical History / Comment(s): hip decompression, bilateral shoulder sx, partial hysterectomy, D&C, carpal tunnel, gastric sleeve, breast augmentation, breast implants removed, laminectomy, left foot surgery, right hip replacement Past Anesthesia/Blood Transfusion Reactions: No Reported Reaction Past Psychological History: No Psychological Hx Reported Smoking Status: Never smoker Past Alcohol Use History: None Reported Past Drug Use History: None Reported - Past Family History Mother Family Medical History: Cancer, Thyroid Disorder General Exam General appearance: alert, in no apparent distress Head exam: Present: atraumatic, normocephalic, normal inspection Eye exam: Present: normal appearance, PERRL, EOMI. Absent: scleral icterus, co njunctival injection, periorbital swelling ENT exam: Present: normal exam, mucous membranes moist Neck exam: Present: normal inspection. Absent: tenderness, meningismus, lymphadenopathy Respiratory exam: Present: normal lung sounds bilaterally. Absent: respiratory distress, wheezes, rales, rhonchi, stridor Cardiovascular Exam: Present: regular rate, normal rhythm, normal heart sounds. Absent: systolic murmur, diastolic murmur, rubs, gallop, clicks GI/Abdominal exam: Present: distended, normal bowel sounds. Absent: tenderness, guarding, rebound, rigid Extremities exam: Present: normal inspection, full ROM, normal capillary refill. Absent: tenderness, pedal edema, joint swelling, calf tenderness Back exam: Present: normal inspection Neurological exam: Present: alert, oriented X3, CN II-XII intact Psychiatric exam: Present: normal affect, normal mood Skin exam: Present: warm, dry, intact, normal color. Absent: rash Course Vital Signs 03/11/23 03/11/23 03/12/23 16:47 18:01 03:47 Temperature 98.7 F 98.2 F 98.6 F Pulse Rate 68 93 110 H Respiratory 18 18 18 Rate Blood Pressure 120/70 109/75 115/59 O2 Sat by Pulse 96 96 97 Oximetry 03/12/23 03/12/23 03/12/23 06:29 11:57 13:38 Temperature 98.1 F 98.3 F Pulse Rate 103 H 100 100 Respiratory 18 20 Rate Blood Pressure 114/46 131/77 112/44 O2 Sat by Pulse 96 97 Oximetry 03/12/23 03/12/23 19:10 20:14 Temperature 97.9 F Pulse Rate 98 99 Respiratory 18 21 Rate Blood Pressure 124/59 118/53 O2 Sat by Pulse 99 98 Oximetry Medical Decision Making - Medical Decision Making Was pt. sent in by a medical professional or institution (SAILAJA Mann, SOCIAL WELFARE ADMINISTRATOR, urgent care, hospital, or skilled nursing...) When possible be specific @ -No Did you speak to anyone other than the patient for history (EMS, parent, family, police, friend...)? What history was obtained from this source @ - Did you review nursing and triage notes (agree or disagree)? Why? @ -I reviewed and agree with nursing and triage notes Were old charts reviewed (outside hosp., previous admission, EMS record, old EKG, old radiological studies, urgent care reports/EKG's, skilled nursing records)? Report findings @ -No old charts were reviewed Differential Diagnosis (chest pain, altered mental status, abdominal pain women, abdominal pain men, vaginal bleeding, weakness, fever, dyspnea, syncope, headache, dizziness, GI bleed, back pain, seizure, CVA, palpatations, mental health, musculoskeletal)? @ -Differential Abdominal Pain Women: Appendicitis, Cholecystitis, diverticulosis, ischemic bowel, pancreatitis, hepatitis, UTI, gastroenteritis, AAA, incarcerated hernia, bowel obstruction, constipation, inflammatory bowel, hepatitis, peptic ulcer disease, splenic infarction, perforated viscus, vulvitis, ovarian torsion, PID, kidney stone, placenta abruption, this is not meant to be an all-inclusive list EKG interpreted by me (3pts min.). @ -not done X-rays interpreted by me (1pt min.). @ -yes, no obstruction CT interpreted by me (1pt min.). @ -yes, no obstruction U/S interpreted by me (1pt. min.). @ -None done What testing was considered but not performed or refused? (CT, X-rays, U/S, labs)? Why? @ -None What meds were considered but not given or refused? Why? @ -None Did you discuss the management of the patient with other professionals (professionals i.e. , PA, SOCIAL WELFARE ADMINISTRATOR, lab, RT, psych nurse, psychiatric social worker supervisor, analytic programmer, teacher, booking police officer, case work aide)? Give summary @ -admitting physician Was smoking cessation discussed for >3mins.? @ -No Was critical care preformed (if so, how long)? @ -No Were there social determinants of health that impacted care today? How? (Homelessness, low income, unemployed, alcoholism, drug addiction, transportation, low edu. Level, literacy, decrease access to med. care, snf, rehab)? @ -No Was there de-escalation of care discussed even if they declined (Discuss DNR or withdrawal of care, Hospice)? DNR status @ -No What co-morbidities impacted this encounter? (DM, HTN, Smoking, COPD, CAD, Cancer, CVA, ARF, Chemo, Hep., AIDS, mental health diagnosis, sleep apnea, morbid obesity)? @ -recent hip replacement Was patient admitted / discharged? Hospital course, mention meds given and route, prescriptions, significant lab abnormalities, going to OR and other pertinent info. @ -admitted for obs - patient in ED for 9 hours and still unable to have bm Undiagnosed new problem with uncertain prognosis? @ -No Drug Therapy requiring intensive monitoring for toxicity (Heparin, Nitro, Insulin, Cardizem)? @ -No Were any procedures done? @ -enema Diagnosis/symptom? @ -acute constipation, recent hip replacement Acute, or Chronic, or Acute on Chronic? @ -acute Uncomplicated (without systemic symptoms) or Complicated (systemic symptoms)? @ -complicated Side effects of treatment? @ -No Exacerbation, Progression, or Severe Exacerbation? @ -No Poses a threat to life or bodily function? How? (Chest pain, USA, NH, pneumonia, PE, COPD, DKA, ARF, appy, cholecystitis, CVA, Diverticulitis, Homicidal, Suicidal, threat to staff... and all critical care pts) @ -No - Lab Data Result diagrams: 03/11/23 23:17 03/11/23 23:17 Lab Results 03/11/23 03/11/23 Range/Units 23:17 23:17 WBC 7.3 (3.8-10.6) k/uL RBC 3.60 L (3.80-5.40) m/uL Hgb 10.7 L (11.4-16.0) gm/dL Hct 32.0 L (34.0-46.0) % MCV 88.7 (80.0-100.0) fL MCH 29.7 (25.0-35.0) pg MCHC 33.5 (31.0-37.0) g/dL RDW 14.4 (11.5-15.5) % Plt Count 398 (150-450) k/uL MPV 7.1 Neutrophils % 51 % Lymphocytes % 35 % Monocytes % 8 % Eosinophils % 3 % Basophils % 1 % Neutrophils # 3.7 (1.3-7.7) k/uL Lymphocytes # 2.5 (1.0-4.8) k/uL Monocytes # 0.6 (0-1.0) k/uL Eosinophils # 0.2 (0-0.7) k/uL Basophils # 0.1 (0-0.2) k/uL Sodium 138 (137-145) mmol/L Potassium 4.1 (3.5-5.1) mmol/L Chloride 101 (98-107) mmol/L Carbon Dioxide 29 (22-30) mmol/L Anion Gap 8 mmol/L BUN 13 (7-17) mg/dL Creatinine 0.65 (0.52-1.04) mg/dL Est GFR (CKD-EPI)AfAm >90 (>60 ml/min/1.73 sqM) Est GFR (CKD-EPI)NonAf >90 (>60 ml/min/1.73 sqM) Glucose 164 H (74-99) mg/dL Calcium 8.4 (8.4-10.2) mg/dL Total Bilirubin 0.4 (0.2-1.3) mg/dL AST 44 H (14-36) U/L ALT 33 (4-34) U/L Alkaline Phosphatase 110 (38-126) U/L Total Protein 5.9 L (6.3-8.2) g/dL Albumin 3.2 L (3.5-5.0) g/dL Disposition Clinical Impression: Constipation Disposition: ADMITTED IP TO THIS HOSP Condition: Stable Is patient prescribed a controlled substance at d/c from ED?: No Time of Disposition: 20:58 Decision to Admit Reason: Admit from EC Decision Date: 03/12/23 Decision Time: 01:12
[2023-03-11] MEDS: MORPHINE SULFATE 4 MG/ML SYRINGE IM STA (20:12)
--- NOTE | 2023-03-11 23:20 | CT ---
EXAM: CT Abdomen and Pelvis Without Intravenous Contrast CLINICAL HISTORY: ITS.REASON CT Reason: obstruction TECHNIQUE: Axial computed tomography images of the abdomen and pelvis without intravenous contrast. CTDI is 21.7 mGy and DLP is 1329.4 mGy-cm. This CT exam was performed using one or more of the following dose reduction techniques: automated exposure control, adjustment of the mA and/or kV according to patient size, and/or use of iterative reconstruction technique. COMPARISON: No relevant prior studies available. FINDINGS: Lung bases: Unremarkable. No mass. No consolidation. ABDOMEN: Liver: Unremarkable. No focal hepatic lesion. Gallbladder and bile ducts: Unremarkable. No calcified stones. No ductal dilation. Pancreas: Unremarkable. No ductal dilation. Spleen: Unremarkable. No splenomegaly. Adrenals: Unremarkable. No mass. Kidneys and ureters: Unremarkable. No hydronephrosis or nephrolithiasis. Stomach and bowel: Mild fecal retention, correlate for constipation. No small bowel obstruction. No free air. Gastric sleeve. No mucosal thickening. PELVIS: Appendix: No findings to suggest acute appendicitis. Bladder: Decompressed urinary bladder. No stones. Reproductive: Unremarkable as visualized. ABDOMEN and PELVIS: Intraperitoneal space: See above. Bones/joints: Degenerative changes of the spine. Recent RIGHT hip arthroplasty with small foci of air at the incision site, anteriorly. No acute fracture. No dislocation. Soft tissues: See above. Vasculature: Atherosclerotic changes of the aorta. No abdominal aortic aneurysm. Lymph nodes: Unremarkable. No enlarged lymph nodes. IMPRESSION: 1. No hydronephrosis or nephrolithiasis. 2. Mild fecal retention, correlate for constipation. No small bowel obstruction. No free air. 3. Recent RIGHT hip arthroplasty with small foci of air at the incision site, anteriorly. 4. Gastric sleeve.
[2023-03-11] MEDS: HYDROmorphone 1 MG/ML 1 ML SYRINGE IVP STA (23:26)
[2023-03-11] MEDS: ONDANSETRON 4 MG/2 ML VIAL IVP STA (23:26)
[2023-03-11 23:31] LABS: Basophils # (A) 0.1 k/uL (0-0.2); Basophils % (A) 1 %; Eosinophils # (A) 0.2 k/uL (0-0.7); Eosinophils % (A) 3 %; HGB 10.7 gm/dL (11.4-16.0); Lymphocytes # (A) 2.5 k/uL (1.0-4.8); Lymphocytes % (A) 35 %; MCH 29.7 pg (25.0-35.0); MCHC 33.5 g/dL (31.0-37.0); MCV 88.7 fL (80.0-100.0); Mean Platelet Volume 7.1; Monocytes # (A) 0.6 k/uL (0-1.0); Monocytes % (A) 8 %; Neutrophils # (A) 3.7 k/uL (1.3-7.7); Neutrophils % (A) 51 %; Platelet Count 398 k/uL (150-450); RDW 14.4 % (11.5-15.5); WBC 7.3 k/uL (3.8-10.6)
[2023-03-11 23:44] LABS: ALT 33 U/L (4-34); AST 44 U/L (14-36); African American GFR (CKD) >90 (>60 ml/min/1.73 sqM); Albumin 3.2 g/dL (3.5-5.0); Alkaline Phosphatase 110 U/L (38-126); Anion Gap 8 mmol/L; Blood Urea Nitrogen 13 mg/dL (7-17); Calcium 8.4 mg/dL (8.4-10.2); Carbon Dioxide 29 mmol/L (22-30); Chloride 101 mmol/L (98-107); Glucose 164 mg/dL (74-99); Non-African American GFR(CKD) >90 (>60 ml/min/1.73 sqM); Potassium 4.1 mmol/L (3.5-5.1); Sodium 138 mmol/L (137-145); Total Bilirubin 0.4 mg/dL (0.2-1.3); Total Protein 5.9 g/dL (6.3-8.2)
[2023-03-12] MEDS ORDERED: ONDANSETRON 4 MG/2 ML VIAL IVP PRN (01:14)
[2023-03-12] MEDS ORDERED: NALOXONE 0.4 MG/ML 1 ML VIAL IV PRN (01:14)
[2023-03-12] MEDS: SODIUM CHLORIDE 0.9% 1,000 ML IV SCH (02:25)
[2023-03-12] MEDS: MORPHINE SULFATE 4 MG/ML SYRINGE IV PRN (04:48)
[2023-03-12] MEDS ORDERED: ALBUTEROL NEBULIZED 2.5 MG/3 ML INHALATION PRN (10:31)
[2023-03-12] MEDS ORDERED: ACETAMINOPHEN TAB 500 MG TAB PO PRN (10:31)
--- NOTE | 2023-03-12 10:31 | P.HPIM ---
History of Present Illness 8-year-old pleasant female came to ER with severe diffuse abdominal pain and severe constipation. Negative CT of the abdomen. Patient does use Coy at home had a hip replacement on March 03. A she is also taking senna and was prescribed lactulose by PCP couple days ago which she is unable to take. Patient received GoLYTELY here along with enemas with the bowel movements. Improved bowel distention patient pain is 4/10 now with morphine which is being discontinued because of the constipation issues. Patient had a gastric bypass because of which she cannot take nonsteroidal anti-inflammatory medications. Patient also is having issues at home with hip pain and mobility and get the commode. Because of this I'm consulting PT and OT again today. REVIEW OF SYSTEMS: CONSTITUTIONAL: No fever, no malaise, no fatigue. HEENT: No recent visual problems or hearing problems. Denied any sore throat. CARDIOVASCULAR: No chest pain, orthopnea, PND, no palpitations, no syncope. PULMONARY: No shortness of breath, no cough, no hemoptysis. GASTROINTESTINAL: No diarrhea, no nausea, no vomiting NEUROLOGICAL: No headaches, no weakness, no numbness. HEMATOLOGICAL: Denies any bleeding or petechiae. GENITOURINARY: Denies any burning micturition, frequency, or urgency. MUSCULOSKELETAL/RHEUMATOLOGICAL: Denies any joint pain, swelling, or any muscle pain. ENDOCRINE: Denies any polyuria or polydipsia. The rest of the 14-point review of systems is negative. PHYSICAL EXAMINATION: GENERAL: The patient is alert and oriented x3, not in any acute distress. Well developed, well nourished. HEENT: Pupils are round and equally reacting to light. EOMI. No scleral icterus. No conjunctival pallor. Normocephalic, atraumatic. No pharyngeal erythema. No thyromegaly. CARDIOVASCULAR: S1 and S2 present. No murmurs, rubs, or gallops. PULMONARY: Chest is clear to auscultation, no wheezing or crackles. ABDOMEN: Mildly distended with without any significant tenderness normoactive bowel sounds. No palpable organomegaly. MUSCULOSKELETAL: No joint swelling or deformity. EXTREMITIES: No cyanosis, clubbing, or pedal edema. NEUROLOGICAL: Gross neurological examination did not reveal any focal deficits. SKIN: No rashes. Assessment and plan -Severe abdominal pain secondary to constipation will continue with GoLYTELY and if patient has couple more bowel movement she can be discharged patient was advised not to take Coy will prescribe tramadol. -Recent hip surgery and morbid issues physical therapy and outpatient therapy consultation -Asthma without any acute exacerbation Diabetes mellitus -Hyperlipidemia -Hypothyroidism -History of ankylosing spondylitis For above-mentioned chronic medical problems patient will be resumed on appropriate home medications -Because of the mobility issues at home and unexplained Sinus tachycardia will order d-dimer to make sure there is no pulmonary embolism DVT prophylaxis: Early ambulation Past Medical History Past Medical History: Asthma, Diabetes Mellitus, Fibromyalgia, Hyperlipidemia, Osteoarthritis (OA), Thyroid Disorder Additional Past Medical History / Comment(s): DM type I, lupus of the skin only, ankylosing spondylitis, interstitial cystitis, thyroid goiter History of Any Multi-Drug Resistant Organisms: MRSA Date of last positivie culture/infection: 2015 MDRO Source:: skin on breast Past Surgical History: Back Surgery, Bariatric Surgery, Breast Surgery, Section, Hysterectomy, Orthopedic Surgery Additional Past Surgical History / Comment(s): hip decompression, bilateral shoulder sx, partial hysterectomy, D&C, carpal tunnel, gastric sleeve, breast augmentation, breast implants removed, laminectomy, left foot surgery, right hip replacement Past Anesthesia/Blood Transfusion Reactions: No Reported Reaction Past Psychological History: No Psychological Hx Reported Smoking Status: Never smoker Past Alcohol Use History: None Reported Past Drug Use History: None Reported - Past Family History Mother Family Medical History: Cancer, Thyroid Disorder Medications and Allergies Home Medications Medication Instructions Recorded Confirmed Type Acetaminophen Tab [Tylenol] 1,000 mg PO Q6HR PRN 01/04/19 03/12/23 History Multivitamins, Thera [Multivitamin 1 tab PO DAILY 01/04/19 03/12/23 History (formulary)] Calcium Carbonate/Vitamin D3 1 tab PO DAILY 03/12/22 03/12/23 History [Calcium 250-D Tablet] Albuterol Inhaler [Ventolin Hfa 1 - 2 puff INHALATION RT-Q6H PRN 02/26/23 03/12/23 History Inhaler] Rosuvastatin Calcium 5 mg PO DAILY 02/26/23 03/12/23 History estradioL [Yuvafem] 10 mcg VG Q3D 02/26/23 03/12/23 History estradioL [estradioL (Once Weekly) 1 patch TRANSDERM Q3D 02/26/23 03/12/23 H istory 0.05 mg Patch] Aspirin [Adult Low Dose Aspirin EC] 81 mg PO BID 30 Days #60 tab 03/03/23 03/12/23 Rx HYDROcodone/APAP 7.5-325MG [Coy 1 - 2 tab PO Q6H PRN #32 tab 03/03/23 03/12/23 Rx 7.5-325] Sennosides [Senokot] 2 tab PO DAILY PRN #60 tablet 03/03/23 03/12/23 Rx Cyclobenzaprine [Flexeril] 10 mg PO TID PRN #20 tablet 03/05/23 03/12/23 Rx Cholecalciferol [Vitamin D3 (25 50 mcg PO DAILY 03/12/23 03/12/23 History Mcg = 1000 Iu)] Insulin Aspart (For Pump) [NovoLOG 0.01 unit SQ-PUMP CONTINUOUS 03/12/23 03/12/23 History (For Pump)] Lactulose [Constulose] 20 gm PO BID PRN 03/12/23 03/12/23 History Allergies Allergy/AdvReac Type Severity Reaction Status Date / Time shellfish derived [Shrimp] Allergy Rash/Hives Verified 03/12/23 07:18 Physical Exam Vitals: Vital Signs Temp Pulse Resp BP Pulse Ox 03/12/23 06:29 98.1 F 103 H 18 114/46 96 03/12/23 03:47 98.6 F 110 H 18 115/59 97 03/11/23 18:01 98.2 F 93 18 109/75 96 03/11/23 16:47 98.7 F 68 18 120/70 96 Intake and Output 03/11/23 03/12/23 03/12/23 22:59 06:59 14:59 Other: Weight 99.79 kg Results CBC & Chem 7: 03/11/23 23:17 03/11/23 23:17 Labs: Abnormal Lab Results - Last 24 Hours (Table) 03/11/23 03/11/23 Range/Units 23:17 23:17 RBC 3.60 L (3.80-5.40) m/uL Hgb 10.7 L (11.4-16.0) gm/dL Hct 32.0 L (34.0-46.0) % Glucose 164 H (74-99) mg/dL AST 44 H (14-36) U/L Total Protein 5.9 L (6.3-8.2) g/dL Albumin 3.2 L (3.5-5.0) g/dL
[2023-03-12] MEDS ORDERED: Insulin Aspart (For Pump) 100 UNIT/ML VIAL SQ-PUMP SCH (10:45)
[2023-03-12] MEDS: KETOROLAC 15 MG/ML 1 ML VIAL IVP PRN (11:52)
[2023-03-12] MEDS: ASPIRIN 81 MG PO SCH (11:52)
[2023-03-12] MEDS: FAMOTIDINE 20 MG TAB PO SCH (11:52)
--- NOTE | 2023-03-12 13:19 | CT ---
EXAMINATION TYPE: CT chest angio for PE DATE OF EXAM: 03/12/2023 COMPARISON: NONE HISTORY: ELEVATED D-DIMER, HIP REPLACEMENT X1 WEEK AGO. Rule out pulmonary embolism CT DLP: 349.6 mGycm. Automated Exposure Control for Dose Reduction was Utilized. CONTRAST: CTA scan of the thorax is performed with IV Contrast, patient injected with 100 mL of Isovue 300, pul monary embolism protocol. MIP Images are created on CT scanner and reviewed. FINDINGS: LUNGS: Mild bibasilar linear scarring and/or atelectasis. Dependent opacity could reflect mild edema and/or atelectatic change in the bilateral lower lobes. No focal consolidation. There is no pleural effusion or pneumothorax seen. The tracheobronchial tree is patent. MEDIASTINUM: Suboptimal study with most dense contrast in the SVC and some heterogeneity in the pulmo nary arteries but no convincing evidence of significant central pulmonary embolism. Some enhancement of the thoracic aorta without aneurysm or dissection. There are no greater than 1 cm hilar or medias tinal lymph nodes. No cardiomegaly or pericardial effusion is seen. OTHER: Nonspecific near 1.0 cm blush in the central liver axial image 133. IMPRESSION: 1. Suboptimal study without acute pulmonary embolism. 2. Possible mild bilateral interstitial edema. Correlate clinically. No suspicious focal consolidatio n.
[2023-03-12] MEDS: DOCUSATE 100 MG CAP PO SCH (15:18)
[2023-03-12] MEDS: polyethylene glycoL 3350 17 GM POWD.PACK PO SCH (15:18)
[2023-03-12] MEDS: LACTULOSE 20 GM/30 ML CUP PO SCH (15:18)
[2023-03-12 18:18] LABS: Glucose,Whole Blood 292 mg/dL (70-110)
[2023-03-12] MEDS: ESTRADIOL TRANSDERM SCH (18:51)
[2023-03-12] MEDS: CYCLOBENZAPRINE 5 MG TAB PO PRN (19:03)
[2023-03-12 20:21] VITALS: BP 118/53; PULSE 99; RESP 21; TEMP 97.9
[2023-03-13] MEDS ORDERED: ATORVASTATIN 10 MG TAB PO SCH (09:00)
--- NOTE | 2023-03-15 10:16 | P.DS ---
Providers Date of admission: 03/12/23 01:16 Expected date of discharge: 03/12/23 Attending physician: Pj Rose Primary care physician: Shania Salinas Hospital Course: Final diagnosis -Severe abdominal pain secondary to constipation -Recent hip surgery -Asthma without any acute exacerbation -Diabetes mellitus -Hyperlipidemia -Hypothyroidism -History of ankylosing spondylitis -obesity with a BMI of 32.5 -DVT prophylaxis -GI prophylaxis -Full code Discharge disposition Patient is being discharged in a stable condition with guarded prognosis to home. Patient will follow-up with in the outpatient setting upon discharge. Patient is to continue with restrictions per orthopedics and outpatient follow-up as scheduled. Total time taken is greater than 35 minutes. Hospital course This is a 62-year-old female who was recently admitted status post recent hip surgery found to have some abdominal pain with severe constipation. Patient was given a GoLYTELY prep and is having bowel movements. Encouraged patient to refrain from narcotic use and will continue with Ultram and/or Tylenol. Patient seen and evaluated by physical therapy doing well and will continue current regimen. Patient has been cleared for discharge today. Patient instructed to follow-up with primary care provider on discharge. Currently no reports of chest pain, shortness of breath, or palpitations. Patient is afebrile. No reports of nausea or vomiting and patient is tolerating diet. Patient will be going home today. Physical exam: Gen: This is a 62-year-old female who is awake, alert and oriented 3, well-d eveloped, well-nourished, obese HEENT: Head is atraumatic, normocephalic. Pupils equal, round. Sclerae is anicteric. NECK: Supple. No JVD. No lymphadenopathy. No thyromegaly. LUNGS: Clear to auscultation. No wheezes or rhonchi. No intercostal retractions. HEART: Regular rate and rhythm. No murmur. ABDOMEN: Soft. Bowel sounds are present. No masses. No tenderness. EXTREMITIES: No pedal edema. No calf tenderness. NEUROLOGICAL: Patient is awake, alert and oriented x3. Cranial nerves 2 through 12 are grossly intact. Please refer to medication reconciliation sheet for a list of medications. The impression and plan of care has been dictated by Eli Preciado, Nurse Practitioner as directed. Dr. Zack MD I have performed a history and examination and MDM of this patient, discussed the same with the dictator, and agree with the dictator's assessment and plan as written ,documented as a scribe. Based on total visit time, I have performed more than 50% of the visit. Patient Condition at Discharge: Stable Plan - Discharge Summary New Discharge Prescriptions: New Docusate [Colace] 100 mg PO BID #60 cap traMADol HCl [Ultram] 50 mg PO Q4HR PRN 3 Days #30 tab PRN Reason: Pain polyethylene glycoL 3350 [Miralax] 17 gm PO DAILY #30 packet Famotidine [Pepcid] 20 mg PO BID 15 Days #30 tab Continue Multivitamins, Thera [Multivitamin (formulary)] 1 tab PO DAILY Acetaminophen Tab [Tylenol] 1,000 mg PO Q6HR PRN PRN Reason: Pain Calcium Carbonate/Vitamin D3 [Calcium 250-D Tablet] 1 tab PO DAILY estradioL [estradioL (Once Weekly) 0.05 mg Patch] 1 patch TRANSDERM Q3D Albuterol Inhaler [Ventolin Hfa Inhaler] 1 - 2 puff INHALATION RT-Q6H PRN PRN Reason: Shortness Of Breath Aspirin [Adult Low Dose Aspirin EC] 81 mg PO BID 30 Days #60 tab Cyclobenzaprine [Flexeril] 10 mg PO TID PRN #20 tablet PRN Reason: Pain Insulin Aspart (For Pump) [NovoLOG (For Pump)] 0.01 unit SQ-PUMP CONTINUOUS Rosuvastatin Calcium 5 mg PO DAILY estradioL [Yuvafem] 10 mcg VG Q3D Cholecalciferol [Vitamin D3 (25 Mcg = 1000 Iu)] 50 mcg PO DAILY Changed Lactulose [Constulose] 20 gm PO TID #240 ml Discontinued HYDROcodone/APAP 7.5-325MG [[place] 7.5-325] 1 - 2 tab PO Q6H PRN #32 tab PRN Reason: Pain Sennosides [Senokot] 2 tab PO DAILY PRN #60 tablet PRN Reason: Constipation Discharge Medication List Acetaminophen Tab [Tylenol] 1,000 mg PO Q6HR PRN 01/04/19 [History] Multivitamins, Thera [Multivitamin (formulary)] 1 tab PO DAILY 01/04/19 [History] Calcium Carbonate/Vitamin D3 [Calcium 250-D Tablet] 1 tab PO DAILY 03/12/22 [History] Albuterol Inhaler [Ventolin Hfa Inhaler] 1 - 2 puff INHALATION RT-Q6H PRN 02/26/23 [History] Rosuvastatin Calcium 5 mg PO DAILY 02/26/23 [History] estradioL [Yuvafem] 10 mcg VG Q3D 02/26/23 [History] estradioL [estradioL (Once Weekly) 0.05 mg Patch] 1 patch TRANSDERM Q3D 02/26/23 [History] Aspirin [Adult Low Dose Aspirin EC] 81 mg PO BID 30 Days #60 tab 03/03/23 [Rx] Cyclobenzaprine [Flexeril] 10 mg PO TID PRN #20 tablet 03/05/23 [Rx] Cholecalciferol [Vitamin D3 (25 Mcg = 1000 Iu)] 50 mcg PO DAILY 03/12/23 [History] Docusate [Colace] 100 mg PO BID #60 cap 03/12/23 [Rx] Famotidine [Pepcid] 20 mg PO BID 15 Days #30 tab 03/12/23 [Rx] Insulin Aspart (For Pump) [NovoLOG (For Pump)] 0.01 unit SQ-PUMP CONTINUOUS 03/12/23 [History] Lactulose [Constulose] 20 gm PO TID #240 ml 03/12/23 [Rx] polyethylene glycoL 3350 [Miralax] 17 gm PO DAILY #30 packet 03/12/23 [Rx] traMADol HCl [Ultram] 50 mg PO Q4HR PRN 3 Days #30 tab 03/12/23 [Rx] Follow up Appointment(s)/Referral(s): Shania Salinas [Primary Care Provider] - 3 Days Patient Instructions/Handouts: Constipation (ED) Activity/Diet/Wound Care/Special Instructions: Continue taking the lactulose twice daily until you start having smooth bowel movements. Return with any issues. Attempt to avoid heavy dose narcotics and continue with Ultram Continue with bowel regimen and hold laxatives if having loose stools Follow-up with orthopedics as scheduled and primary care provider CT study was negative for pulmonary embolism Discharge Disposition: HOME WITH HOME HEALTH SERVICES
== END 2023-03-12 22:30 | disposition home health service (06) ==
LOC: EC 16:45 → 6NMEDSUR 03-12 01:16 → 1SOBS 03-12 19:16
PROVIDERS: ADMIT Internal Medicine; ATTEND Internal Medicine
DX: K59.00 Constipation, unspecified (principal); J45.909 Unspecified asthma, uncomplicated; M79.7 Fibromyalgia; E10.9 Type 1 diabetes mellitus without complications; E03.9 Hypothyroidism, unspecified; E66.9 Obesity, unspecified; M32.19 Other organ or system involvement in systemic lupus erythematosus; E78.5 Hyperlipidemia, unspecified; Z79.82 Long term (current) use of aspirin; Z79.4 Long term (current) use of insulin; Z68.32 Body mass index [BMI] 32.0-32.9, adult; Z98.82 Breast implant status; Z98.84 Bariatric surgery status; Z96.41 Presence of insulin pump (external) (internal); Z79.899 Other long term (current) drug therapy; Z91.013 Allergy to seafood; Z86.14 Personal history of Methicillin resistant Staphylococcus aureus infection; Z96.641 Presence of right artificial hip joint
CPT/HCPCS: 96365; 96366; 96367; 96375; 96376; 99285; 36415; 97161; 85379; 80053; 85025; 74018; 71275; 74176; G0378; J2270 ×2; J2405; J1170; J1885; Q9967

== ENCOUNTER → 2023-05-27 | Outpatient (CLI) | payer BC, MEDICARE ==
--- NOTE | 2023-05-29 11:15 | MM ---
Reason for Exam: Screening (asymptomatic). Last mammogram was performed 1 year(s) and 3 month(s) ago. Patient History: Menarche at age 14. First Full-Term at age 22. Hysterectomy at age 40. Postmenopausal. Patient has history of breast feeding. Currently using Estrogen, for 5 years. 05/03/2020, Bilateral Implant Removal. 2001, Bilateral Implants. Maternal aunt had breast cancer, age 64. Mother had breast cancer, age 66. Risk Values: Berna 5 year model risk: 2.8%. NCI Lifetime model risk: 13.2%. Prior Study Comparison: 10/13/2019 Bilateral Screening Mammogram, [facility]. 01/01/2021 Bilateral Screening Mammogram, [facility]. 02/18/2022 Bilateral MG 3D screening mammo w/cad, [facility]. Tissue Density: The breasts are heterogeneously dense, which may obscure small masses. Findings: Analyzed By CAD. There is no suspicious group of microcalcifications or new suspicious mass in either breast. A benign appearing calcifications. Benign lymph node left axilla. Overall Assessment: Benign, BI-RAD 2 Management: Screening Mammogram of both breasts in 1 year. . Patient should continue monthly self-breast exams. A clinical breast exam by your physician is recommended on an annual basis. This exam should not preclude additional follow-up of suspicious palpable abnormalities. Note on Berna scores and lifetime risk: 1. A Berna score greater than 3% is considered moderate risk. If this is the case, consider specialist referral to assess eligibility for a risk reducing agent. 2. If overall lifetime risk for the development of breast cancer is 20% or higher, the patient may qualify for future screening with alternating mammogram and breast MRI. Electronically signed and approved by: Gonzalo Xavier M.D. Radiologis
== END | disposition home or self-care (01) ==
LOC: RADMAMWWP 12:51
PROVIDERS: ATTEND Internal Medicine
DX: Z12.31 Encounter for screening mammogram for malignant neoplasm of breast (principal); Z80.3 Family history of malignant neoplasm of breast; Z78.0 Asymptomatic menopausal state; Z98.82 Breast implant status
CPT/HCPCS: 77063; 77067

== ENCOUNTER → 2024-06-07 | Outpatient (CLI) | payer BC, MEDICARE ==
--- NOTE | 2024-06-08 14:28 | MM ---
Reason for Exam: Screening (asymptomatic). Last mammogram was performed 1 year(s) and 1 month(s) ago. Patient History: Menarche at age 14. First Full-Term at age 22. Hysterectomy at age 40. Postmenopausal. Patient has history of breast feeding. Currently using Estrogen, for 5 years. 05/03/2020, Bilateral Implant Removal. 2001, Bilateral Implants. Maternal aunt had breast cancer, age 64. Mother had breast cancer, age 66. Risk Values: Berna 5 year model risk: 2.9%. NCI Lifetime model risk: 12.8%. Prior Study Comparison: 01/01/2021 Bilateral Screening Mammogram, [facility]. 02/18/2022 Bilateral MG 3D screening mammo w/cad, [facility]. 05/27/2023 Bilateral MG 3D screening mammo w/cad, [facility]. Tissue Density: The breasts are heterogeneously dense, which may obscure small masses. Findings: There is no suspicious group of microcalcifications or new suspicious mass in either breast. Overall Assessment: Benign, BI-RAD 2 Management: Screening Mammogram of both breasts in 1 year. . Patient should continue monthly self-breast exams. A clinical breast exam by your physician is recommended on an annual basis. This exam should not preclude additional follow-up of suspicious palpable abnormalities. Note on Berna scores and lifetime risk: 1. A Berna score greater than 3% is considered moderate risk. If this is the case, consider specialist referral to assess eligibility for a risk reducing agent. 2. If overall lifetime risk for the development of breast cancer is 20% or higher, the patient may qualify for future screening with alternating mammogram and breast MRI. [facility], , 06/08/2024 2:26 PM. Electronically signed and approved by: Ismael Trinh M.D. Radiologis
== END | disposition home or self-care (01) ==
LOC: RADMAMWWP 13:04
PROVIDERS: ATTEND Student in an Organized Health Care Education/Training Program
DX: Z12.31 Encounter for screening mammogram for malignant neoplasm of breast (principal); R92.333 Mammographic heterogeneous density, bilateral breasts; Z78.0 Asymptomatic menopausal state; Z80.3 Family history of malignant neoplasm of breast; Z98.82 Breast implant status
CPT/HCPCS: 77063; 77067

== ENCOUNTER 2024-09-11 01:46 | Emergency (ER) | payer BC, MEDICARE ==
[2024-09-11 01:53] VITALS: RESP 17
--- NOTE | 2024-09-11 02:34 | ED ---
Fall HPI - General Chief Complaint: Fall Stated Complaint: L toe, knee & shoulder Injuries Time Seen by Provider: 09/11/24 01:56 Source: patient Mode of arrival: EMS - History of Present Illness Initial Comments: 64-year-old female presenting for evaluation post fall. Patient was walking down the stairs and turned her head to see if her dogs were fighting when she missed stepped and fell down about 3 stairs. She fell onto her left knee. She is complaining of pain in the left shoulder and left second toe primarily. She denies any head injury, loss of consciousness, use of blood thinners. No chest pain, difficulty breathing, abdominal pain. Denies any other injuries. No numbness tingling or weakness. - Related Data Home Medications Medication Instructions Recorded Confirmed Acetaminophen Tab [Tylenol] 1,000 mg PO Q6HR PRN 01/04/19 03/12/23 Multivitamins, Thera [Multivitamin 1 tab PO DAILY 01/04/19 03/12/23 (formulary)] Calcium Carbonate/Vitamin D3 1 tab PO DAILY 03/12/22 03/12/23 [Calcium 250-D Tablet] Albuterol Inhaler [Ventolin Hfa 1 - 2 puff INHALATION RT-Q6H PRN 02/26/23 03/12/23 Inhaler] Rosuvastatin Calcium 5 mg PO DAILY 02/26/23 03/12/23 estradioL [Yuvafem] 10 mcg VG Q3D 02/26/23 03/12/23 estradioL [estradioL (Once Weekly) 1 patch TRANSDERM Q3D 02/26/23 03/12/23 0.05 mg Patch] Cholecalciferol [Vitamin D3 (25 50 mcg PO DAILY 03/12/23 03/12/23 Mcg = 1000 Iu)] Insulin Aspart (For Pump) [NovoLOG 0.01 unit SQ-PUMP CONTINUOUS 03/12/23 03/12/23 (For Pump)] Previous Rx's Medication Instructions Recorded Aspirin [Adult Low Dose Aspirin EC] 81 mg PO BID 30 Days #60 tab 03/03/23 Cyclobenzaprine [Flexeril] 10 mg PO TID PRN #20 tablet 03/05/23 Docusate [Colace] 100 mg PO BID #60 cap 03/12/23 Famotidine [Pepcid] 20 mg PO BID 15 Days #30 tab 03/12/23 Lactulose [Constulose] 20 gm PO TID #240 ml 03/12/23 polyethylene glycoL 3350 [Miralax] 17 gm PO DAILY #30 packet 03/12/23 traMADol HCl [Ultram] 50 mg PO Q4HR PRN 3 Days #30 tab 03/12/23 Cyclobenzaprine [Flexeril] 10 mg PO TID PRN #15 tab 09/11/24 Allergies Allergy/AdvReac Type Severity Reaction Status Date / Time shellfish derived [Shrimp] Allergy Rash/Hives Verified 03/12/23 07:18 amoxicillin AdvReac Rash/Hives Verified 09/11/24 01:53 Review of Systems ROS Statement: Those systems with pertinent positive or pertinent negative responses have been documented in the HPI. ROS Other: All systems not noted in ROS Statement are negative. Past Medical History Past Medical History: Asthma, Diabetes Mellitus, Fibromyalgia, Hyperlipidemia, Osteoarthritis (OA), Thyroid Disorder Additional Past Medical History / Comment(s): DM type I, lupus of the skin only, ankylosing spondylitis, interstitial cystitis, thyroid goiter History of Any Multi-Drug Resistant Organisms: None Reported, MRSA Date of last positivie culture/infection: 2015 MDRO Source:: skin on breast Past Surgical History: Back Surgery, Bariatric Surgery, Breast Surgery, Section, Hysterectomy, Orthopedic Surgery Additional Past Surgical History / Comment(s): hip decompression, bilateral shoulder sx, partial hysterectomy, D&C, carpal tunnel, gastric sleeve, breast augmentation, breast implants removed, laminectomy, left foot surgery, right hip replacement Past Anesthesia/Blood Transfusion Reactions: No Reported Reaction Past Psychological History: No Psychological Hx Reported Smoking Status: Never smoker Past Alcohol Use History: None Reported Past Drug Use History: None Reported - Past Family History Mother Family Medical History: Cancer, Thyroid Disorder General Exam Limitations: no limitations General appearance: alert, in no apparent distress Head exam: Present: atraumatic, normocephalic, normal inspection Eye exam: Present: normal appearance, EOMI. Absent: periorbital swelling Neck exam: Present: normal inspection. Absent: meningismus Respiratory exam: Present: normal lung sounds bilaterally. Absent: respiratory distress, wheezes, rales, rhonchi, stridor Cardiovascular Exam: Present: regular rate, normal rhythm, normal heart sounds. Absent: systolic murmur, diastolic murmur, rubs, gallop, clicks Left Shoulder Exam: Present: normal inspection, tenderness. Absent: full ROM Left Knee exam: Present: normal inspection, full ROM. Absent: tenderness, deformity Foot/Toe exam: Present: full ROM, tenderness (2nd toe), swelling (2nd toe) Neurological exam: Present: alert, oriented X3 Psychiatric exam: Present: normal affect, normal mood Skin exam: Present: warm, dry, normal color Course Vital Signs 09/11/24 09/11/24 01:49 04:14 Temperature 98.4 F 97.7 F Pulse Rate 79 74 Respiratory 17 17 Rate Blood Pressure 123/58 130/62 O2 Sat by Pulse 100 97 Oximetry Medical Decision Making - Medical Decision Making Was pt. sent in by a medical professional or institution (SAILAJA Mann, WET ROOM SUPERVISOR, urgent care, hospital, or senior living...) When possible be specific @ -No Did you speak to anyone other than the patient for history (EMS, parent, family, police, friend...)? What history was obtained from this source @ -No Did you review nursing and triage notes (agree or disagree)? Why? @ -I reviewed and agree with nursing and triage notes Were old charts reviewed (outside hosp., previous admission, EMS record, old EKG, old radiological studies, urgent care reports/EKG's, senior living records)? Report findings @ -No old charts were reviewed Differential Diagnosis (chest pain, altered mental status, abdominal pain women, abdominal pain men, vaginal bleeding, weakness, fever, dyspnea, syncope, headache, dizziness, GI bleed, back pain, seizure, CVA, palpatations, mental health, musculoskeletal)? @ -Differential Musculoskeletal Muscular strain, contusion, ligament sprain, fracture, arthritis, septic arthritis, bursitis, cellulitis, muscle spasm, nerve compression, DVT, arterial occlusion, herpes zoster, electrolyte abnormality, tumor.... This is not meant to be in all inclusive list EKG interpreted by me (3pts min.). @ -As above X-rays interpreted by me (1pt min.). @ -Knee x-ray shows subtle irregularity involving the lateral aspect of the tibial spine. If there is concern for ligamentous attachment injury MRI is recommended Shoulder x-ray shows no acute osseous traumatic injury or abnormal alignment involving the left shoulder. Incidental degenerative changes. Toe x-ray shows nondisplaced fracture involving the proximal metaphysis of the left second digit no significant angulation. Questionable extension into the MTP joint in the lateral projection. Soft tissue fullness at the base of the second digit no radiopaque foreign body. CT interpreted by me (1pt min.). @ -None done U/S interpreted by me (1pt. min.). @ -None done What testing was considered but not performed or refused? (CT, X-rays, U/S, labs)? Why? @ -None What meds were considered but not given or refused? Why? @ -None Did you discuss the management of the patient with other professionals (professionals i.e. , PA, WET ROOM SUPERVISOR, lab, RT, psych nurse, home health care social worker, automotive design drafter, teacher, infantry weapons officer, community case manager)? Give summary @ -No Was smoking cessation discussed for >3mins.? @ -No Was critical care preformed (if so, how long)? @ -No Were there social determinants of health that impacted care today? How? (Homelessness, low income, unemployed, alcoholism, drug addiction, transportation, low edu. Level, literacy, decrease access to med. care, [facility], rehab)? @ -No Was there de-escalation of care discussed even if they declined (Discuss DNR or withdrawal of care, Hospice)? DNR status @ -No What co-morbidities impacted this encounter? (DM, HTN, Smoking, COPD, CAD, Cancer, CVA, ARF, Chemo, Hep., AIDS, mental health diagnosis, sleep apnea, morbid obesity)? @ -None Was patient admitted / discharged? Hospital course, mention meds given and route, prescriptions, significant lab abnormalities, going to OR and other pertinent info. @ -64-year-old female presenting for evaluation post fall. Patient fell down about 3 stairs. Denies head injury loss of consciousness or blood thinners. Complaining primarily of left toe, left knee, and left shoulder pain. X-ray confirms fracture of the left second toe. There is a possible ligamentous injury to the left knee. No acute process seen of the left shoulder. Toes are olivia taped, patient is provided with a postop shoe, she is placed in a knee immobilizer. Provided with crutches. She is instructed to follow-up with orthopedics, she has seen Dr. Blake in the past. Follow-up with PCP. Report back to ER with any new or worsening symptoms. Discussed return parameters and answered all questions. Patient conveyed verbal understanding and agreed to the plan. I discussed this case in detail with my attending Dr. Zendejas Undiagnosed new problem with uncertain prognosis? @ -No Drug Therapy requiring intensive monitoring for toxicity (Heparin, Nitro, Insulin, Cardizem)? @ -No Were any procedures done? @ -No Diagnosis/symptom? @ -Toe fracture, ligamentous injury of the knee Acute, or Chronic, or Acute on Chronic? @ -Acute Uncomplicated (without systemic symptoms) or Complicated (systemic symptoms)? @ -Uncomplicated Side effects of treatment? @ -No Exacerbation, Progression, or Severe Exacerbation? @ -No Poses a threat to life or bodily function? How? (Chest pain, [place], [place], pneumonia, PE, COPD, DKA, ARF, appy, cholecystitis, CVA, Diverticulitis, Homicidal, Suicidal, threat to staff... and all critical care pts) @ -Unlikely but she must follow-up with orthopedics to ensure there is no compromise in the function of the joints long-term Disposition Clinical Impression: Toe fracture, Injury of ligament of knee Disposition: HOME SELF-CARE Condition: Good Instructions (If sedation given, give patient instructions): Knee Sprain (ED), Toe Fracture (ED) Additional Instructions: Follow-up with orthopedics. Report back to ER with any new or worsening symptoms. Motrin and Tylenol as needed for pain control. Rest, ice, elevate. Cyclobenzaprine may cause drowsiness do not take before driving or operating heavy machinery Prescriptions: Cyclobenzaprine [Flexeril] 10 mg PO TID PRN #15 tab PRN Reason: Spasms Is patient prescribed a controlled substance at d/c from ED?: No Referrals: Makenzie Navarro DO [Primary Care Provider] - 1-2 days Time of Disposition: 04:04
[2024-09-11] MEDS: MORPHINE SULFATE 4 MG/ML SYRINGE IM STA (03:28)
--- NOTE | 2024-09-11 03:35 | XR ---
EXAM: XR Left Knee, 3 Views CLINICAL HISTORY: fall TECHNIQUE: Three views of the left knee. COMPARISON: No relevant prior studies available. FINDINGS: Bones/joints: Subtle irregularity involving the lateral aspect of the tibial spine. The remaining osseous structures are intact. No radiographic evidence for suprapatellar joint effusion. No dislocation. Soft tissues: The soft tissues are unremarkable, accounting for overlying artifact. IMPRESSION: Subtle irregularity involving the lateral aspect of the tibial spine. If there is concern for ligamentous attachment injury, MRI is recommended.
--- NOTE | 2024-09-11 03:36 | XR ---
EXAM: XR Left Shoulder Complete, 2 or More Views CLINICAL HISTORY: Fall TECHNIQUE: Two or more views of the left shoulder. COMPARISON: No relevant prior studies available. FINDINGS: Bones/joints: Heterotopic calcification adjacent to the greater tubercle superiorly measuring 7 mm, most consistent with calcific tendinosis. Degenerative changes of the acromioclavicular joint. No acute osseous abnormality. No dislocation. Soft tissues: No significant overlying soft tissue abnormality. No radiopaque foreign body. IMPRESSION: No acute osseous traumatic injury or abnormal alignment involving the left shoulder. Incidental degenerative changes.
--- NOTE | 2024-09-11 03:37 | XR ---
EXAM: XR Left Toes, 2 or More Views CLINICAL HISTORY: Fall TECHNIQUE: Frontal, lateral and oblique views of the toes of the left foot. COMPARISON: No relevant prior studies available. FINDINGS: Bones/joints: Nondisplaced fracture involving the proximal metaphysis of the left 2nd digit. No significant angulation. Questionable extension to the metatarsophalangeal joint in the lateral projection. There are two threaded screws involving the distal 2nd metatarsal head. There is ankylosis of the 2nd PIP joint. The remaining osseous structures are maintained. No dislocation. Soft tissues: Soft tissue fullness of the base of the 2nd digit. No radiopaque foreign body. IMPRESSION: 1. Nondisplaced fracture involving the proximal metaphysis of the left 2nd digit. No significant angulation. Questionable extension to the metatarsophalangeal joint in the lateral projection. 2. Soft tissue fullness of the base of the 2nd digit. No radiopaque foreign body.
[2024-09-11] MEDS: CYCLOBENZAPRINE 10 MG TAB PO STA (04:05)
[2024-09-11] MEDS: ACET/COD 300 MG/30 MG STARTER PACK 6 TAB BTL PO STA (04:06)
[2024-09-11 04:17] VITALS: BP 130/62; PULSE 74; TEMP 97.7
== END 2024-09-11 04:29 | disposition home or self-care (01) ==
LOC: EC 01:46
DX: S92.912A Unspecified fracture of left toe(s), initial encounter for closed fracture (principal); S83.512A Sprain of anterior cruciate ligament of left knee, initial encounter; Z88.0 Allergy status to penicillin; Z91.013 Allergy to seafood; W18.39XA Other fall on same level, initial encounter
CPT/HCPCS: 73030; 73562; 73660; 99283; 96372; L1830; J2270